=== PATIENT | male | born 1960 | race African-American/Black ===

== ENCOUNTER 2017-02-07 03:30 | Inpatient (IN) | payer SELFPAY ==
[2017-02-07] VITALS (12 sets, daily range): BP systolic 102–163; BP diastolic 60–94
[~2017-02-07] VITALS: Ht 175.3 cm; Wt 72.6 kg
[2017-02-07 04:24] LABS: BASOPHILS # (AUTO) 0.2 K/uL (0.0-8.0); BASOPHILS % (AUTO) 0.8 % (0.0-2.0); EOSINOPHILS # (AUTO) 0.2 K/uL (0.0-0.7); EOSINOPHILS % (AUTO) 0.9 % (0.0-7.0); HEMATOCRIT 48.5 % (40-50); HEMOGLOBIN 16.2 G/DL (14.0-18.0); LYMPHOCYTES # (AUTO) 0.7 K/UL (0.8-4.8); LYMPHOCYTES % (AUTO) 3.5 % (20.5-51.5); MEAN CORPUSCULAR HEMOGLOBIN 27.2 UUG (27.0-31.0); MEAN CORPUSCULAR HGB CONC 33 g/dL (32.0-37.0); MEAN CORPUSCULAR VOLUME 81.4 FL (82.0-92.0); MONOCYTES # (AUTO) 0.8 K/UL (0.1-1.30); MONOCYTES % (AUTO) 3.9 % (0.0-11.0); NEUTROPHILS # (AUTO) 17.9 K/UL (1.8-8.9); NEUTROPHILS % (AUTO) 90.9 % (38.5-71.5); PLATELET COUNT (AUTO) 496 K/UL (150-450); RED BLOOD CELL COUNT(AUTO) 5.95 MIL/UL (4.7-6.1); WHITE BLOOD COUNT (AUTO) 19.8 K/UL (4.0-11.2)
[2017-02-07 04:43] LABS: ALANINE AMINOTRANSFERASE 14 U/L (16-63); ALKALINE PHOSPHATASE 129 U/L (50-136); ASPARTATE AMINOTRANSFERASE 12 U/L (15-37); BILIRUBIN,DIRECT < 0.1 mg/dL (0.0-0.2); BILIRUBIN,TOTAL 0.3 mg/dL (0.2-1.0); CARBON DIOXIDE 37 mmol/L (21-32); CHLORIDE 97 mmol/L (98-107); CREATININE 3.4 mg/dL (0.6-1.3); LIPASE 104 U/L (73-393); POTASSIUM 3.2 mmol/L (3.5-5.1); TOTAL PROTEIN, SERUM 6.4 g/dL (6.4-8.2); UREA NITROGEN, BLOOD 44 mg/dL (7-18)
[2017-02-07 04:47] LABS: GLUCOSE 757 mg/dL (74-106)
[2017-02-07 05:47] LABS: BAND % (MANUAL) 2 % (0-10); LYMPHOCYTES % (MANUAL) 6 % (20-40); METAMYELOCYTES % 1 % (0-1); MONOCYTES % (MANUAL) 3 % (2-10); NEUTROPHILS % (MANUAL) 88 % (42-75)
[2017-02-07 13:45] LABS: CREATININE 3.4 mg/dL (0.6-1.3); POTASSIUM 3.3 mmol/L (3.5-5.1)
[2017-02-07 13:48] LABS: HEMOGLOBIN 13.8 G/DL (14.0-18.0); MEAN CORPUSCULAR HEMOGLOBIN 26.5 UUG (27.0-31.0); MEAN CORPUSCULAR HGB CONC 33 g/dL (32.0-37.0); MEAN CORPUSCULAR VOLUME 80.5 FL (82.0-92.0); PLATELET COUNT (AUTO) 465 K/UL (150-450); WHITE BLOOD COUNT (AUTO) 15.6 K/UL (4.0-11.2)
[2017-02-07 13:51] LABS: BILIRUBIN,TOTAL 0.4 mg/dL (0.2-1.0); TOTAL PROTEIN, SERUM 5.1 g/dL (6.4-8.2)
[2017-02-07 13:59] LABS: HEMATOCRIT 42.2 % (40-50); RED BLOOD CELL COUNT(AUTO) 5.24 MIL/UL (4.7-6.1)
[2017-02-07 14:24] LABS: LYMPHOCYTES % (MANUAL) 6 % (20-40); MONOCYTES % (MANUAL) 6 % (2-10); NEUTROPHILS % (MANUAL) 88 % (42-75)
[2017-02-07 20:46] LABS: *BILIRUBIN,URIN NEGATIVE (NEGATIVE); *BLOOD, URINE 2+ (NEGATIVE); *CLARITY,URINE SLIGHTLY CLOUDY (CLEAR); *COLOR,URINE YELLOW (YELLOW); *KETONES,URINE TRACE (NEGATIVE); *UROBILINOGEN,URINE 0.2 E.U./dl (NORMAL); LEUKOCYTE ESTERASE ,URINE NEGATIVE (NEGATIVE); NITRITE, URINE NEGATIVE (NEGATIVE); PH,URINE 6.5 (5.0-8.0)
[2017-02-07 20:48] LABS: *PROTEIN,URINE 3+ (NEGATIVE); UGLUCOSE 3+ (NEGATIVE)
[2017-02-07 20:56] LABS: BACTERIA,URINE FEW /HPF (NONE SEEN); SQUAMOUS EPITHELIAL CELL,UR FEW /HPF (NONE SEEN); YEAST,URINE RARE /HPF (NONE SEEN)
[2017-02-07 20:59] LABS: *CREATININE,URINE 74.2 mg/dL (30-125)
[2017-02-07 21:44] LABS: *URINE TOTAL PROTEIN RANDOM > 1000.0 mg/dL (<150/24HR)
[2017-02-08] VITALS (25 sets, daily range): BP systolic 94–192; BP diastolic 52–104
[2017-02-08 05:11] LABS: BASOPHILS # (AUTO) 0.3 K/uL (0.0-8.0); BASOPHILS % (AUTO) 1.1 % (0.0-2.0); EOSINOPHILS % (AUTO) 0.1 % (0.0-7.0); HEMATOCRIT 47.3 % (40-50); HEMOGLOBIN 15.5 G/DL (14.0-18.0); LYMPHOCYTES # (AUTO) 1.6 K/UL (0.8-4.8); LYMPHOCYTES % (AUTO) 5.2 % (20.5-51.5); MEAN CORPUSCULAR HEMOGLOBIN 26.8 UUG (27.0-31.0); MEAN CORPUSCULAR HGB CONC 33 g/dL (32.0-37.0); MONOCYTES # (AUTO) 1.4 K/UL (0.1-1.30); MONOCYTES % (AUTO) 4.4 % (0.0-11.0); NEUTROPHILS # (AUTO) 28.3 K/UL (1.8-8.9); NEUTROPHILS % (AUTO) 89.2 % (38.5-71.5); PLATELET COUNT (AUTO) 530 K/UL (150-450); RED BLOOD CELL COUNT(AUTO) 5.76 MIL/UL (4.7-6.1)
[2017-02-08 05:14] LABS: CREATININE 3.6 mg/dL (0.6-1.3); PHOSPHOROUS 3.6 mg/dL (2.5-4.9); POTASSIUM 3.1 mmol/L (3.5-5.1)
[2017-02-08 05:19] LABS: WHITE BLOOD COUNT (AUTO) 31.6 K/UL (4.0-11.2)
[2017-02-08 05:49] LABS: *OCCULT BLOOD STOOL POSITIVE (NEGATIVE)
[2017-02-08 06:01] LABS: BAND % (MANUAL) 5 % (0-10); LYMPHOCYTES % (MANUAL) 6 % (20-40); MONOCYTES % (MANUAL) 2 % (2-10); NEUTROPHILS % (MANUAL) 87 % (42-75)
[2017-02-08] MEDS ORDERED: POTA10CA43 PO (21:22)
[2017-02-08] MEDS ORDERED: ASPI-612 PO (21:22)
[2017-02-08] MEDS ORDERED: LEVE500T20 PO (21:22)
[2017-02-08] MEDS ORDERED: OMEP40CA37 PO (21:22)
[2017-02-09] VITALS (22 sets, daily range): BP systolic 94–186; BP diastolic 55–97
[2017-02-09 05:12] LABS: BASOPHILS # (AUTO) 0.3 K/uL (0.0-8.0); BASOPHILS % (AUTO) 1.7 % (0.0-2.0); EOSINOPHILS % (AUTO) 0.2 % (0.0-7.0); HEMATOCRIT 36.9 % (40-50); HEMOGLOBIN 12.2 G/DL (14.0-18.0); LYMPHOCYTES # (AUTO) 1.8 K/UL (0.8-4.8); LYMPHOCYTES % (AUTO) 10.9 % (20.5-51.5); MEAN CORPUSCULAR HGB CONC 33 g/dL (32.0-37.0); MEAN CORPUSCULAR VOLUME 81.5 FL (82.0-92.0); MONOCYTES # (AUTO) 1.2 K/UL (0.1-1.30); MONOCYTES % (AUTO) 7.1 % (0.0-11.0); NEUTROPHILS # (AUTO) 13.2 K/UL (1.8-8.9); NEUTROPHILS % (AUTO) 80.1 % (38.5-71.5); PLATELET COUNT (AUTO) 418 K/UL (150-450); RED BLOOD CELL COUNT(AUTO) 4.53 MIL/UL (4.7-6.1); WHITE BLOOD COUNT (AUTO) 16.5 K/UL (4.0-11.2)
[2017-02-09 05:14] LABS: CREATININE 3.4 mg/dL (0.6-1.3); MAGNESIUM 1.6 mg/dL (1.8-2.4); PHOSPHOROUS 2.3 mg/dL (2.5-4.9); POTASSIUM 3.5 mmol/L (3.5-5.1)
[2017-02-09 08:38] LABS: BAND % (MANUAL) 2 % (0-10); LYMPHOCYTES % (MANUAL) 11 % (20-40); MONOCYTES % (MANUAL) 8 % (2-10); NEUTROPHILS % (MANUAL) 79 % (42-75)
[2017-02-09 14:10] LABS: A/G RATIO 0.8 (0.7-1.7); ALPHA-1-GLOBULIN 0.2 g/dL (0.0-0.4); ALPHA-2-GLOBULIN 0.7 g/dL (0.4-1.0); GAMMA GLOBULIN 0.7 g/dL (0.4-1.8); GLOBULIN, TOTAL 2.6 g/dL (2.2-3.9); M-SPIKE Not Observed g/dL (Not Observed)
[2017-02-10] VITALS (23 sets, daily range): BP systolic 108–162; BP diastolic 53–92
[2017-02-10 05:08] LABS: BASOPHILS # (AUTO) 0.2 K/uL (0.0-8.0); BASOPHILS % (AUTO) 1.7 % (0.0-2.0); EOSINOPHILS # (AUTO) 0.2 K/uL (0.0-0.7); EOSINOPHILS % (AUTO) 2.2 % (0.0-7.0); HEMATOCRIT 35.2 % (40-50); HEMOGLOBIN 11.5 G/DL (14.0-18.0); LYMPHOCYTES # (AUTO) 1.8 K/UL (0.8-4.8); LYMPHOCYTES % (AUTO) 19.1 % (20.5-51.5); MEAN CORPUSCULAR HGB CONC 33 g/dL (32.0-37.0); MEAN CORPUSCULAR VOLUME 82.7 FL (82.0-92.0); MONOCYTES # (AUTO) 0.4 K/UL (0.1-1.30); MONOCYTES % (AUTO) 4.7 % (0.0-11.0); NEUTROPHILS # (AUTO) 6.8 K/UL (1.8-8.9); NEUTROPHILS % (AUTO) 72.3 % (38.5-71.5); PLATELET COUNT (AUTO) 370 K/UL (150-450); RED BLOOD CELL COUNT(AUTO) 4.25 MIL/UL (4.7-6.1); WHITE BLOOD COUNT (AUTO) 9.4 K/UL (4.0-11.2)
[2017-02-10 05:36] LABS: BILIRUBIN,TOTAL 0.3 mg/dL (0.2-1.0); POTASSIUM 3.6 mmol/L (3.5-5.1); TOTAL PROTEIN, SERUM 4.7 g/dL (6.4-8.2)
[2017-02-10 07:36] LABS: EOSINOPHILS % (MANUAL) 4 % (0-8); LYMPHOCYTES % (MANUAL) 14 % (20-40); MONOCYTES % (MANUAL) 3 % (2-10); NEUTROPHILS % (MANUAL) 79 % (42-75)
[2017-02-10 11:59] LABS: THYROID STIMULATING HORMONE 3.17 mIU/mL (0.358-3.740)
[2017-02-11] VITALS (12 sets, daily range): BP systolic 90–159; BP diastolic 57–95
[2017-02-11 04:48] LABS: BASOPHILS # (AUTO) 0.1 K/uL (0.0-8.0); BASOPHILS % (AUTO) 0.7 % (0.0-2.0); EOSINOPHILS # (AUTO) 0.4 K/uL (0.0-0.7); EOSINOPHILS % (AUTO) 2.3 % (0.0-7.0); HEMATOCRIT 33.2 % (40-50); LYMPHOCYTES # (AUTO) 1.9 K/UL (0.8-4.8); LYMPHOCYTES % (AUTO) 12.1 % (20.5-51.5); MEAN CORPUSCULAR HGB CONC 33 g/dL (32.0-37.0); MEAN CORPUSCULAR VOLUME 81.5 FL (82.0-92.0); MONOCYTES # (AUTO) 0.4 K/UL (0.1-1.30); MONOCYTES % (AUTO) 2.5 % (0.0-11.0); NEUTROPHILS # (AUTO) 12.7 K/UL (1.8-8.9); NEUTROPHILS % (AUTO) 82.4 % (38.5-71.5); PLATELET COUNT (AUTO) 325 K/UL (150-450); RED BLOOD CELL COUNT(AUTO) 4.07 MIL/UL (4.7-6.1); WHITE BLOOD COUNT (AUTO) 15.5 K/UL (4.0-11.2)
[2017-02-11 05:05] LABS: BILIRUBIN,TOTAL 0.4 mg/dL (0.2-1.0); CREATININE 2.8 mg/dL (0.6-1.3); MAGNESIUM 1.6 mg/dL (1.8-2.4); PHOSPHOROUS 2.5 mg/dL (2.5-4.9); POTASSIUM 3.7 mmol/L (3.5-5.1); TOTAL PROTEIN, SERUM 4.6 g/dL (6.4-8.2)
[2017-02-11 09:12] LABS: EOSINOPHILS % (MANUAL) 3 % (0-8); LYMPHOCYTES % (MANUAL) 14 % (20-40); MONOCYTES % (MANUAL) 1 % (2-10); NEUTROPHILS % (MANUAL) 82 % (42-75)
[2017-02-12] VITALS: BP 139/66
[2017-02-12 04:00] VITALS: BP 131/68
[2017-02-12 07:50] VITALS: BP 152/89
[2017-02-12 10:43] LABS: *BILIRUBIN,URIN NEGATIVE (NEGATIVE); *BLOOD, URINE 1+ (NEGATIVE); *CLARITY,URINE CLEAR (CLEAR); *COLOR,URINE YELLOW (YELLOW); *KETONES,URINE NEGATIVE (NEGATIVE); *UROBILINOGEN,URINE 0.2 E.U./dl (NORMAL); LEUKOCYTE ESTERASE ,URINE TRACE (NEGATIVE); NITRITE, URINE NEGATIVE (NEGATIVE); UGLUCOSE TRACE (NEGATIVE)
[2017-02-12 10:49] LABS: *PROTEIN,URINE 3+ (NEGATIVE)
[2017-02-12 10:52] LABS: BACTERIA,URINE FEW /HPF (NONE SEEN); SQUAMOUS EPITHELIAL CELL,UR FEW /HPF (NONE SEEN)
[2017-02-12 10:53] LABS: YEAST,URINE RARE /HPF (NONE SEEN)
[2017-02-12 11:05] LABS: *CREATININE,URINE 21.3 mg/dL (30-125); *URINE TOTAL PROTEIN RANDOM 179.3 mg/dL (<150/24HR)
[2017-02-12 12:00] VITALS: BP 120/76
[2017-02-12 16:06] VITALS: BP 138/76
[2017-02-12 20:13] VITALS: BP 137/85
[2017-02-13 05:14] VITALS: BP 137/83
[2017-02-13 06:31] LABS: BASOPHILS % (AUTO) 0.3 % (0.0-2.0); EOSINOPHILS # (AUTO) 0.6 K/uL (0.0-0.7); EOSINOPHILS % (AUTO) 5.7 % (0.0-7.0); HEMATOCRIT 34.3 % (40-50); HEMOGLOBIN 11.3 G/DL (14.0-18.0); LYMPHOCYTES # (AUTO) 1.8 K/UL (0.8-4.8); LYMPHOCYTES % (AUTO) 17.3 % (20.5-51.5); MEAN CORPUSCULAR HEMOGLOBIN 26.8 UUG (27.0-31.0); MEAN CORPUSCULAR HGB CONC 33 g/dL (32.0-37.0); MEAN CORPUSCULAR VOLUME 81.4 FL (82.0-92.0); MONOCYTES # (AUTO) 0.8 K/UL (0.1-1.30); MONOCYTES % (AUTO) 8.3 % (0.0-11.0); NEUTROPHILS % (AUTO) 68.4 % (38.5-71.5); PLATELET COUNT (AUTO) 281 K/UL (150-450); RED BLOOD CELL COUNT(AUTO) 4.22 MIL/UL (4.7-6.1); WHITE BLOOD COUNT (AUTO) 10.2 K/UL (4.0-11.2)
[2017-02-13 06:59] LABS: BILIRUBIN,TOTAL 0.2 mg/dL (0.2-1.0); CREATININE 2.5 mg/dL (0.6-1.3); MAGNESIUM 1.7 mg/dL (1.8-2.4); PHOSPHOROUS 2.9 mg/dL (2.5-4.9); POTASSIUM 4.1 mmol/L (3.5-5.1); TOTAL PROTEIN, SERUM 5.1 g/dL (6.4-8.2)
[2017-02-13 11:11] VITALS: BP 147/76
[2017-02-13 15:18] VITALS: BP 127/77
[2017-02-13 20:00] VITALS: BP 130/75
[2017-02-14 06:01] VITALS: BP 135/65
[2017-02-14 07:39] LABS: BASOPHILS % (AUTO) 0.2 % (0.0-2.0); EOSINOPHILS # (AUTO) 0.5 K/uL (0.0-0.7); EOSINOPHILS % (AUTO) 4.9 % (0.0-7.0); HEMATOCRIT 31.2 % (40-50); HEMOGLOBIN 10.5 G/DL (14.0-18.0); LYMPHOCYTES # (AUTO) 1.6 K/UL (0.8-4.8); LYMPHOCYTES % (AUTO) 16.4 % (20.5-51.5); MEAN CORPUSCULAR HGB CONC 34 g/dL (32.0-37.0); MEAN CORPUSCULAR VOLUME 80.4 FL (82.0-92.0); MONOCYTES # (AUTO) 0.9 K/UL (0.1-1.30); MONOCYTES % (AUTO) 8.8 % (0.0-11.0); NEUTROPHILS # (AUTO) 6.8 K/UL (1.8-8.9); NEUTROPHILS % (AUTO) 69.7 % (38.5-71.5); PLATELET COUNT (AUTO) 331 K/UL (150-450); RED BLOOD CELL COUNT(AUTO) 3.88 MIL/UL (4.7-6.1); WHITE BLOOD COUNT (AUTO) 9.8 K/UL (4.0-11.2)
[2017-02-14 08:00] VITALS: BP 153/82
[2017-02-14 08:19] LABS: CREATININE 2.3 mg/dL (0.6-1.3); MAGNESIUM 1.5 mg/dL (1.8-2.4); PHOSPHOROUS 2.8 mg/dL (2.5-4.9); POTASSIUM 4.1 mmol/L (3.5-5.1)
[2017-02-14 10:24] LABS: BAND % (MANUAL) 3 % (0-10); EOSINOPHILS % (MANUAL) 7 % (0-8); LYMPHOCYTES % (MANUAL) 20 % (20-40); MONOCYTES % (MANUAL) 5 % (2-10); MYELOCYTES % 1 % (0-0); NEUTROPHILS % (MANUAL) 64 % (42-75)
[2017-02-14 12:00] VITALS: BP 138/75
[2017-02-14 14:55] VITALS: BP 118/71
[2017-02-14 19:00] VITALS: BP 150/78
[2017-02-15 06:15] LABS: BASOPHILS # (AUTO) 0.2 K/uL (0.0-8.0); EOSINOPHILS # (AUTO) 0.4 K/uL (0.0-0.7); EOSINOPHILS % (AUTO) 3.4 % (0.0-7.0); HEMATOCRIT 34.1 % (40-50); HEMOGLOBIN 11.3 G/DL (14.0-18.0); LYMPHOCYTES # (AUTO) 1.9 K/UL (0.8-4.8); LYMPHOCYTES % (AUTO) 18.3 % (20.5-51.5); MEAN CORPUSCULAR HEMOGLOBIN 26.8 UUG (27.0-31.0); MEAN CORPUSCULAR HGB CONC 33 g/dL (32.0-37.0); MEAN CORPUSCULAR VOLUME 80.7 FL (82.0-92.0); MONOCYTES # (AUTO) 1.2 K/UL (0.1-1.30); MONOCYTES % (AUTO) 11.1 % (0.0-11.0); NEUTROPHILS # (AUTO) 6.8 K/UL (1.8-8.9); NEUTROPHILS % (AUTO) 65.2 % (38.5-71.5); PLATELET COUNT (AUTO) 279 K/UL (150-450); RED BLOOD CELL COUNT(AUTO) 4.22 MIL/UL (4.7-6.1); WHITE BLOOD COUNT (AUTO) 10.4 K/UL (4.0-11.2)
[2017-02-15 06:28] LABS: CREATININE 2.5 mg/dL (0.6-1.3); MAGNESIUM 2.1 mg/dL (1.8-2.4); PHOSPHOROUS 2.5 mg/dL (2.5-4.9); POTASSIUM 4.2 mmol/L (3.5-5.1)
[2017-02-15 09:08] LABS: A/G RATIO 0.5 (0.7-1.7); ALBUMIN 1.7 g/dL (2.9-4.4); ALPHA-1-GLOBULIN 0.3 g/dL (0.0-0.4); ALPHA-2-GLOBULIN 0.8 g/dL (0.4-1.0); BETA GLOBULIN 0.7 g/dL (0.7-1.3); GAMMA GLOBULIN 1.3 g/dL (0.4-1.8); GLOBULIN, TOTAL 3.1 g/dL (2.2-3.9); M-SPIKE 0.6 g/dL (Not Observed)
[2017-02-15 13:00] VITALS: BP 135/83
[2017-02-15 15:58] VITALS: BP 140/76
[2017-02-15 19:17] VITALS: BP 130/76
[2017-02-16 04:00] VITALS: BP 140/67
[2017-02-16 06:29] LABS: CREATININE 2.7 mg/dL (0.6-1.3); PHOSPHOROUS 3.2 mg/dL (2.5-4.9); POTASSIUM 3.6 mmol/L (3.5-5.1)
[2017-02-16 06:41] LABS: BASOPHILS % (AUTO) 0.4 % (0.0-2.0); EOSINOPHILS # (AUTO) 0.3 K/uL (0.0-0.7); EOSINOPHILS % (AUTO) 2.5 % (0.0-7.0); HEMATOCRIT 31.5 % (40-50); HEMOGLOBIN 10.3 G/DL (14.0-18.0); LYMPHOCYTES # (AUTO) 3.3 K/UL (0.8-4.8); LYMPHOCYTES % (AUTO) 28.5 % (20.5-51.5); MEAN CORPUSCULAR HEMOGLOBIN 26.5 UUG (27.0-31.0); MEAN CORPUSCULAR HGB CONC 33 g/dL (32.0-37.0); MEAN CORPUSCULAR VOLUME 81.4 FL (82.0-92.0); MONOCYTES # (AUTO) 1.4 K/UL (0.1-1.30); MONOCYTES % (AUTO) 12.1 % (0.0-11.0); NEUTROPHILS # (AUTO) 6.4 K/UL (1.8-8.9); NEUTROPHILS % (AUTO) 56.5 % (38.5-71.5); RED BLOOD CELL COUNT(AUTO) 3.88 MIL/UL (4.7-6.1); WHITE BLOOD COUNT (AUTO) 11.4 K/UL (4.0-11.2)
[2017-02-16 06:56] LABS: PLATELET COUNT (AUTO) 412 K/UL (150-450)
[2017-02-16 07:55] VITALS: BP 122/66
[2017-02-16 10:41] LABS: BAND % (MANUAL) 3 % (0-10); LYMPHOCYTES % (MANUAL) 26 % (20-40); MONOCYTES % (MANUAL) 10 % (2-10); NEUTROPHILS % (MANUAL) 61 % (42-75)
[2017-02-16 11:59] VITALS: BP 101/51
[2017-02-16] MEDS ORDERED: AMLO5TAB2 PO (14:11)
[2017-02-16] MEDS ORDERED: Blood Sugar Diagnostic VI (14:11)
[2017-02-16] MEDS ORDERED: INSU100I19 SQ (14:11)
[2017-02-16] MEDS ORDERED: ATOR40TA PO (14:11)
[2017-02-16 15:42] VITALS: BP 113/61
[2017-02-16 20:00] VITALS: BP 120/64
== END 2017-02-17 | disposition home or self-care (01) | DRG 377 ==
LOC: ER 03:32 → CCU 09:09 → TELE 02-11 18:34 → MED 02-12 11:06
PROVIDERS: ADMIT Nurse Practitioner Acute Care; ATTEND Internal Medicine
PROC: B548ZZA Ultrasonography of Superior Vena Cava, Guidance (ICD-10-PCS; principal; 2017-02-09)
PROC: 02HV33Z Insertion of Infusion Device into Superior Vena Cava, Percutaneous Approach (ICD-10-PCS; principal; 2017-02-09)
PROC: 0DB48ZX Excision of Esophagogastric Junction, Via Natural or Artificial Opening Endoscopic, Diagnostic (ICD-10-PCS; 2017-02-10)
PROC: 0DB28ZX Excision of Middle Esophagus, Via Natural or Artificial Opening Endoscopic, Diagnostic (ICD-10-PCS; 2017-02-10)
PROC: 0DB38ZX Excision of Lower Esophagus, Via Natural or Artificial Opening Endoscopic, Diagnostic (ICD-10-PCS; 2017-02-10)
PROC: 0DB68ZX Excision of Stomach, Via Natural or Artificial Opening Endoscopic, Diagnostic (ICD-10-PCS; 2017-02-10)
DX: K29.01 Acute gastritis with bleeding (principal); N17.0 Acute kidney failure with tubular necrosis; I21.4 Non-ST elevation (NSTEMI) myocardial infarction; R65.11 Systemic inflammatory response syndrome (SIRS) of non-infectious origin with acute organ dysfunction; I63.9 Cerebral infarction, unspecified; G93.40 Encephalopathy, unspecified; E11.00 Type 2 diabetes mellitus with hyperosmolarity without nonketotic hyperglycemic-hyperosmolar coma (NKHHC); K31.84 Gastroparesis; E11.40 Type 2 diabetes mellitus with diabetic neuropathy, unspecified; I50.31 Acute diastolic (congestive) heart failure; E43 Unspecified severe protein-calorie malnutrition; N18.4 Chronic kidney disease, stage 4 (severe); D68.59 Other primary thrombophilia; N04.9 Nephrotic syndrome with unspecified morphologic changes; E87.0 Hyperosmolality and hypernatremia; I31.3 Pericardial effusion (noninflammatory); I13.0 Hypertensive heart and chronic kidney disease with heart failure and stage 1 through stage 4 chronic kidney disease, or unspecified chronic kidney disease; E66.01 Morbid (severe) obesity due to excess calories; K29.51 Unspecified chronic gastritis with bleeding; E86.0 Dehydration; E88.09 Other disorders of plasma-protein metabolism, not elsewhere classified; D50.9 Iron deficiency anemia, unspecified; E78.5 Hyperlipidemia, unspecified; E87.6 Hypokalemia; G40.909 Epilepsy, unspecified, not intractable, without status epilepticus; K74.60 Unspecified cirrhosis of liver; I69.820 Aphasia following other cerebrovascular disease; I25.2 Old myocardial infarction; Z98.61 Coronary angioplasty status; D72.829 Elevated white blood cell count, unspecified; K44.9 Diaphragmatic hernia without obstruction or gangrene; F01.50 Vascular dementia, unspecified severity, without behavioral disturbance, psychotic disturbance, mood disturbance, and anxiety; N28.1 Cyst of kidney, acquired; N40.0 Benign prostatic hyperplasia without lower urinary tract symptoms; K80.20 Calculus of gallbladder without cholecystitis without obstruction; Z79.4 Long term (current) use of insulin; E11.65 Type 2 diabetes mellitus with hyperglycemia; E11.21 Type 2 diabetes mellitus with diabetic nephropathy; E11.43 Type 2 diabetes mellitus with diabetic autonomic (poly)neuropathy; H35.30 Unspecified macular degeneration; I25.10 Atherosclerotic heart disease of native coronary artery without angina pectoris; M81.0 Age-related osteoporosis without current pathological fracture; Z68.23 Body mass index [BMI] 23.0-23.9, adult; K21.0 Gastro-esophageal reflux disease with esophagitis
CPT/HCPCS: 36415; 36569; 70030-TC; 70450; 71010; 76705; 76770; 83605; 83690; 83735; 83970; 84100; 84155; 84156; 84165; 84300; 84443; 85025; 85730; 86850; 86900; 86901; 87086; 93005; 93307; 97110; 97116; 97530; A4217; A4663; C9113; J0360; J1815; J1885; J1953; J2060; J2354; J2405; J2543; J3475; J3480; J3490; J7030; J7060; Q9963

== ENCOUNTER 2017-05-02 16:36 | Inpatient (IN) | payer MEDICAID ==
[~2017-05-02] VITALS: Ht 170.2 cm; Wt 61.2 kg
[~2017-05-02 16:36] MED LIST: AMLO5TAB2 PO; ASPI-612 PO; ATOR40TA PO; Blood Sugar Diagnostic VI; INSU100I19 SQ; LEVE500T20 PO; OMEP40CA37 PO; POTA10CA43 PO
[2017-05-03 14:00] VITALS: BP 144/87
[2017-05-03] MEDS ORDERED: CEFT1FRO2 IV (14:48)
[2017-05-03] MEDS ORDERED: PANT40TA2 PO (14:48)
[2017-05-03] MEDS ORDERED: APIX2.5T PO (14:48)
[2017-05-03] MEDS ORDERED: HYDR-4075 IV (14:48)
[2017-05-03] MEDS ORDERED: ACET-2154 PO (14:48)
[2017-05-03] MEDS ORDERED: DEXTROSE 50% 50 ML DISP.SYRIN IV PRN (15:00)
[2017-05-03] MEDS ORDERED: Z GUARD REMEDY PASTE 57 GM TUBE TOP PRN (15:30)
[2017-05-03] MEDS: BLOOD SUGAR DIAGNOSTIC 1 EACH STRIP VI SCH ×2 (17:11→21:39)
[2017-05-03] MEDS: INSULIN REGULAR, HUMAN 300 UNIT/3 ML VIAL SQ PRN ×2 (17:14→22:36)
[2017-05-03 19:40] VITALS: BP 141/68
[2017-05-03] MEDS ORDERED: LEVETIRACETAM 500 MG TABLET PO SCH (21:30)
[2017-05-03] MEDS ORDERED: PANTOPRAZOLE SODIUM 40 MG TABLET.DR PO SCH (21:30)
[2017-05-04] MEDS ORDERED: ACETAMINOPHEN 325 MG TABLET PO SCH
[2017-05-04] MEDS ORDERED: ACETAMINOPHEN 325 MG TABLET ONE (00:25)
[2017-05-04] MEDS ORDERED: AMLODIPINE 10 MG TABLET ONE (00:26)
[2017-05-04] MEDS ORDERED: LEVETIRACETAM 500 MG TABLET ONE (00:28)
[2017-05-04] MEDS ORDERED: ASPIRIN 325 MG TABLET ONE (00:29)
[2017-05-04] MEDS ORDERED: ATORVASTATIN 40 MG TABLET ONE (00:29)
[2017-05-04] MEDS ORDERED: INSULIN DETEMIR 300 UNIT/3 ML CARTRIDGE SQ ONE (00:38)
[2017-05-04] MEDS: ATORVASTATIN 40 MG TABLET PO SCH ×2 (01:00→20:34)
[2017-05-04] MEDS: ASPIRIN 325 MG TABLET PO SCH ×2 (01:01→09:30)
[2017-05-04] MEDS: AMLODIPINE 5 MG TABLET PO SCH ×2 (01:05→09:31)
[2017-05-04] MEDS: INSULIN DETEMIR 300 UNIT/3 ML CARTRIDGE SQ SCH ×2 (01:15→20:37)
[2017-05-04 06:53] LABS: BASOPHILS # (AUTO) 0.1 K/uL (0.0-8.0); BASOPHILS % (AUTO) 0.9 % (0.0-2.0); EOSINOPHILS # (AUTO) 0.3 K/uL (0.0-0.7); EOSINOPHILS % (AUTO) 4.3 % (0.0-7.0); HEMATOCRIT 30.5 % (40-50); HEMOGLOBIN 10.5 G/DL (14.0-18.0); LYMPHOCYTES # (AUTO) 1.2 K/UL (0.8-4.8); LYMPHOCYTES % (AUTO) 17.5 % (20.5-51.5); MEAN CORPUSCULAR HGB CONC 34 g/dL (32.0-37.0); MEAN CORPUSCULAR VOLUME 81.6 FL (82.0-92.0); MONOCYTES # (AUTO) 0.9 K/UL (0.1-1.30); MONOCYTES % (AUTO) 13.2 % (0.0-11.0); NEUTROPHILS # (AUTO) 4.4 K/UL (1.8-8.9); NEUTROPHILS % (AUTO) 64.1 % (38.5-71.5); PLATELET COUNT (AUTO) 376 K/UL (150-450); RED BLOOD CELL COUNT(AUTO) 3.74 MIL/UL (4.7-6.1); WHITE BLOOD COUNT (AUTO) 6.9 K/UL (4.0-11.2)
[2017-05-04 07:18] LABS: MAGNESIUM 1.8 mg/dL (1.8-2.4); PHOSPHOROUS 3.6 mg/dL (2.5-4.9); POTASSIUM 3.5 mmol/L (3.5-5.1)
[2017-05-04 07:30] VITALS: BP 126/78
[2017-05-04] MEDS ORDERED: PANTOPRAZOLE SODIUM 40 MG TABLET.DR PO SCH (07:30)
[2017-05-04] MEDS ORDERED: POTASSIUM CHLORIDE 10 MEQ CAPSULE.SA PO SCH (09:00)
[2017-05-04] MEDS ORDERED: Medication Not On Formulary EA (Omeprazole 40 MG) PO SCH (09:00)
[2017-05-04] MEDS ORDERED: Medication Not On Formulary EA (Apixaban (Eliquis) 2.5 MG) PO SCH (09:00)
[2017-05-04] MEDS: BLOOD SUGAR DIAGNOSTIC 1 EACH STRIP VI SCH ×4 (09:30→20:34)
[2017-05-04] MEDS: LEVETIRACETAM 500 MG TABLET PO SCH ×2 (09:31→20:34)
[2017-05-04] MEDS: PANTOPRAZOLE SODIUM 40 MG TABLET.DR PO SCH (09:31)
[2017-05-04] MEDS ORDERED: DEXTROSE 50% 50 ML DISP.SYRIN IV PRN (10:00)
[2017-05-04] MEDS ORDERED: ACETAMINOPHEN 325 MG TABLET PO PRN (11:00)
[2017-05-04] MEDS: CEFTRIAXONE 1 G in IV DEXTROSE 5% 50 ML IV SCH (11:52)
[2017-05-04] MEDS: INSULIN REGULAR, HUMAN 300 UNIT/3 ML VIAL SQ PRN ×2 (12:12→17:12)
[2017-05-04] MEDS ORDERED: APIXABAN 5 MG TABLET PO ONE ×2 (18:00)
[2017-05-04] MEDS: INSULIN REGULAR, HUMAN 300 UNITS/3 ML VIAL SQ PRN (20:39)
[2017-05-04 20:59] VITALS: BP 143/80
[2017-05-05] MEDS: BLOOD SUGAR DIAGNOSTIC 1 EACH STRIP VI SCH ×4 (06:33→21:04)
[2017-05-05] MEDS: PANTOPRAZOLE SODIUM 40 MG TABLET.DR PO SCH (06:33)
[2017-05-05 08:24] VITALS: BP 134/64
[2017-05-05] MEDS: ASPIRIN 325 MG TABLET PO SCH (09:35)
[2017-05-05] MEDS: AMLODIPINE 5 MG TABLET PO SCH (09:35)
[2017-05-05] MEDS: LEVETIRACETAM 500 MG TABLET PO SCH ×2 (09:35→21:04)
[2017-05-05] MEDS ORDERED: APIXABAN 5 MG TABLET PO ONE ×2 (10:45→20:45)
[2017-05-05] MEDS: CEFTRIAXONE 1 G in IV DEXTROSE 5% 50 ML IV SCH (11:15)
[2017-05-05] MEDS: INSULIN REGULAR, HUMAN 300 UNIT/3 ML VIAL SQ PRN (17:00)
[2017-05-05] MEDS: ATORVASTATIN 40 MG TABLET PO SCH (21:04)
[2017-05-05] MEDS: INSULIN DETEMIR 300 UNIT/3 ML CARTRIDGE SQ SCH (21:09)
[2017-05-05 21:10] VITALS: BP 129/78
[2017-05-05] MEDS: INSULIN REGULAR, HUMAN 300 UNITS/3 ML VIAL SQ PRN (21:10)
[2017-05-06] MEDS: PANTOPRAZOLE SODIUM 40 MG TABLET.DR PO SCH (06:31)
[2017-05-06] MEDS: BLOOD SUGAR DIAGNOSTIC 1 EACH STRIP VI SCH ×5 (06:32→21:58)
[2017-05-06 08:27] VITALS: BP 149/77
[2017-05-06] MEDS: ASPIRIN 325 MG TABLET PO SCH (08:58)
[2017-05-06] MEDS: LEVETIRACETAM 500 MG TABLET PO SCH ×2 (08:59→21:49)
[2017-05-06] MEDS: AMLODIPINE 5 MG TABLET PO SCH (09:00)
[2017-05-06] MEDS: LEVOFLOXACIN 250 MG TABLET PO SCH (11:16)
[2017-05-06] MEDS: INSULIN REGULAR, HUMAN 300 UNIT/3 ML VIAL SQ PRN ×2 (12:09→17:22)
[2017-05-06] MEDS ORDERED: APIXABAN 5 MG TABLET PO ONE (13:30)
[2017-05-06 20:25] VITALS: BP 140/82
[2017-05-06] MEDS: ATORVASTATIN 40 MG TABLET PO SCH (21:49)
[2017-05-06] MEDS: INSULIN DETEMIR 300 UNIT/3 ML CARTRIDGE SQ SCH (21:58)
[2017-05-06] MEDS: APIXABAN 5 MG TABLET PO SCH (21:58)
[2017-05-07] MEDS: PANTOPRAZOLE SODIUM 40 MG TABLET.DR PO SCH (06:24)
[2017-05-07] MEDS: BLOOD SUGAR DIAGNOSTIC 1 EACH STRIP VI SCH ×4 (06:40→20:54)
[2017-05-07 08:14] VITALS: BP 121/65
[2017-05-07] MEDS: APIXABAN 5 MG TABLET PO SCH ×2 (09:25→20:54)
[2017-05-07] MEDS: ASPIRIN 325 MG TABLET PO SCH (09:25)
[2017-05-07] MEDS: LEVETIRACETAM 500 MG TABLET PO SCH ×2 (09:25→20:54)
[2017-05-07] MEDS: AMLODIPINE 5 MG TABLET PO SCH (09:26)
[2017-05-07] MEDS: LEVOFLOXACIN 250 MG TABLET PO SCH (11:21)
[2017-05-07] MEDS: INSULIN REGULAR, HUMAN 300 UNIT/3 ML VIAL SQ PRN ×2 (12:19→17:16)
[2017-05-07] MEDS ORDERED: INFLUENZA VACCINE 2017-2018 0.5 ML DISP.SYRIN IM ONE (17:00)
[2017-05-07 20:46] VITALS: BP 136/77
[2017-05-07] MEDS: ATORVASTATIN 40 MG TABLET PO SCH (20:54)
[2017-05-07] MEDS: INSULIN REGULAR, HUMAN 300 UNITS/3 ML VIAL SQ PRN (20:56)
[2017-05-07] MEDS: INSULIN DETEMIR 300 UNIT/3 ML CARTRIDGE SQ SCH (20:58)
[2017-05-08] MEDS: PANTOPRAZOLE SODIUM 40 MG TABLET.DR PO SCH (06:22)
[2017-05-08] MEDS: BLOOD SUGAR DIAGNOSTIC 1 EACH STRIP VI SCH ×4 (06:41→20:50)
[2017-05-08 08:26] VITALS: BP 154/83
[2017-05-08] MEDS: ASPIRIN 325 MG TABLET PO SCH (08:52)
[2017-05-08] MEDS: LEVETIRACETAM 500 MG TABLET PO SCH ×2 (08:53→20:50)
[2017-05-08] MEDS: APIXABAN 5 MG TABLET PO SCH ×2 (08:53→20:49)
[2017-05-08] MEDS: AMLODIPINE 5 MG TABLET PO SCH (08:54)
[2017-05-08] MEDS: LEVOFLOXACIN 250 MG TABLET PO SCH (11:32)
[2017-05-08] MEDS: INSULIN REGULAR, HUMAN 300 UNIT/3 ML VIAL SQ PRN ×2 (12:16→17:11)
[2017-05-08 19:40] VITALS: BP 134/75
[2017-05-08] MEDS: ATORVASTATIN 40 MG TABLET PO SCH (20:50)
[2017-05-08] MEDS: INSULIN REGULAR, HUMAN 300 UNITS/3 ML VIAL SQ PRN (20:52)
[2017-05-08] MEDS: INSULIN DETEMIR 300 UNIT/3 ML CARTRIDGE SQ SCH (20:57)
[2017-05-09] MEDS: PANTOPRAZOLE SODIUM 40 MG TABLET.DR PO SCH (07:01)
[2017-05-09 08:11] VITALS: BP 148/72
[2017-05-09] MEDS: ASPIRIN 325 MG TABLET PO SCH (09:29)
[2017-05-09] MEDS: APIXABAN 5 MG TABLET PO SCH ×2 (09:30→21:17)
[2017-05-09] MEDS: LEVETIRACETAM 500 MG TABLET PO SCH ×2 (09:30→21:17)
[2017-05-09] MEDS: AMLODIPINE 5 MG TABLET PO SCH (09:33)
[2017-05-09] MEDS: LEVOFLOXACIN 250 MG TABLET PO SCH (11:38)
[2017-05-09] MEDS: BLOOD SUGAR DIAGNOSTIC 1 EACH STRIP VI SCH ×3 (11:43→21:17)
[2017-05-09] MEDS: INSULIN REGULAR, HUMAN 300 UNIT/3 ML VIAL SQ PRN (11:47)
[2017-05-09 19:45] VITALS: BP 145/79
[2017-05-09] MEDS: ATORVASTATIN 40 MG TABLET PO SCH (21:16)
[2017-05-09] MEDS: INSULIN REGULAR, HUMAN 300 UNITS/3 ML VIAL SQ PRN (21:22)
[2017-05-09] MEDS: INSULIN DETEMIR 300 UNIT/3 ML CARTRIDGE SQ SCH (22:26)
[2017-05-10] MEDS: PANTOPRAZOLE SODIUM 40 MG TABLET.DR PO SCH (06:55)
[2017-05-10] MEDS: BLOOD SUGAR DIAGNOSTIC 1 EACH STRIP VI SCH ×4 (07:45→20:41)
[2017-05-10 07:52] VITALS: BP 140/80
[2017-05-10] MEDS: ASPIRIN EC 81 MG TABLET.DR PO SCH (10:07)
[2017-05-10] MEDS: LEVETIRACETAM 500 MG TABLET PO SCH ×2 (10:08→20:29)
[2017-05-10] MEDS: APIXABAN 5 MG TABLET PO SCH ×2 (10:12→20:29)
[2017-05-10] MEDS: AMLODIPINE 5 MG TABLET PO SCH (10:14)
[2017-05-10] MEDS: LEVOFLOXACIN 250 MG TABLET PO SCH (11:53)
[2017-05-10] MEDS: INSULIN REGULAR, HUMAN 300 UNIT/3 ML VIAL SQ PRN ×2 (13:23→17:10)
[2017-05-10 20:00] VITALS: BP 140/77
[2017-05-10] MEDS: INSULIN REGULAR, HUMAN 300 UNITS/3 ML VIAL SQ PRN (20:37)
[2017-05-10] MEDS: INSULIN DETEMIR 300 UNIT/3 ML CARTRIDGE SQ SCH (20:38)
[2017-05-10] MEDS: ATORVASTATIN 40 MG TABLET PO SCH (20:42)
[2017-05-11] MEDS: BLOOD SUGAR DIAGNOSTIC 1 EACH STRIP VI SCH ×4 (06:39→20:27)
[2017-05-11] MEDS: PANTOPRAZOLE SODIUM 40 MG TABLET.DR PO SCH (06:39)
[2017-05-11 07:46] VITALS: BP 138/76
[2017-05-11 08:08] LABS: BILIRUBIN,TOTAL 0.1 mg/dL (0.2-1.0); CREATININE 2.9 mg/dL (0.6-1.3); MAGNESIUM 1.5 mg/dL (1.8-2.4); PHOSPHOROUS 3.4 mg/dL (2.5-4.9); POTASSIUM 3.8 mmol/L (3.5-5.1); TOTAL PROTEIN, SERUM 5.5 g/dL (6.4-8.2)
[2017-05-11] MEDS: ASPIRIN EC 81 MG TABLET.DR PO SCH (08:13)
[2017-05-11] MEDS: AMLODIPINE 5 MG TABLET PO SCH (08:13)
[2017-05-11] MEDS: APIXABAN 5 MG TABLET PO SCH ×2 (08:13→20:29)
[2017-05-11] MEDS: LEVETIRACETAM 500 MG TABLET PO SCH ×2 (08:13→20:29)
[2017-05-11 08:15] LABS: BASOPHILS % (AUTO) 0.6 % (0.0-2.0); EOSINOPHILS % (AUTO) 2.9 % (0.0-7.0); HEMOGLOBIN 9.2 g/dL (12.5-16.3); MONOCYTES # (AUTO) 0.6 K/uL (2.0-10.0)
[2017-05-11] MEDS: INSULIN REGULAR, HUMAN 300 UNIT/3 ML VIAL SQ PRN ×2 (08:19→17:01)
[2017-05-11 08:29] LABS: BASOPHILS # (AUTO) 0.1 K/uL (0.0-8.0); EOSINOPHILS # (AUTO) 0.2 K/uL (0.0-0.7); HEMATOCRIT 26.5 % (36.7-47.1); LYMPHOCYTES # (AUTO) 1.8 K/uL (20.0-40.0); LYMPHOCYTES % (AUTO) 20.9 % (20.5-51.5); MEAN CORPUSCULAR HEMOGLOBIN 27.7 uug (23.8-33.4); MEAN CORPUSCULAR HGB CONC 35 g/dL (32.5-36.3); MEAN CORPUSCULAR VOLUME 79.5 fL (73.0-96.2); MONOCYTES % (AUTO) 7.2 % (0.0-11.0); NEUTROPHILS # (AUTO) 5.9 K/uL (1.8-8.9); NEUTROPHILS % (AUTO) 68.4 % (38.5-71.5); RED BLOOD CELL COUNT(AUTO) 3.33 MIL/uL (4.06-5.63); WHITE BLOOD COUNT (AUTO) 8.6 K/uL (3.6-10.2)
[2017-05-11 08:30] LABS: PLATELET COUNT (AUTO) 434 K/uL (152-348)
[2017-05-11] MEDS: LEVOFLOXACIN 250 MG TABLET PO SCH (11:27)
[2017-05-11] MEDS ORDERED: MAGNESIUM OXIDE 400 MG TABLET PO ONE (15:00)
[2017-05-11 20:13] VITALS: BP 143/80
[2017-05-11] MEDS: INSULIN DETEMIR 300 UNIT/3 ML CARTRIDGE SQ SCH (20:28)
[2017-05-11] MEDS: ATORVASTATIN 40 MG TABLET PO SCH (20:29)
[2017-05-11] MEDS: INSULIN REGULAR, HUMAN 300 UNITS/3 ML VIAL SQ PRN (20:31)
[2017-05-12] MEDS: PANTOPRAZOLE SODIUM 40 MG TABLET.DR PO SCH (06:47)
[2017-05-12] MEDS: BLOOD SUGAR DIAGNOSTIC 1 EACH STRIP VI SCH ×4 (06:47→20:08)
[2017-05-12 07:30] VITALS: BP 126/71
[2017-05-12] MEDS: INSULIN REGULAR, HUMAN 300 UNIT/3 ML VIAL SQ PRN ×3 (08:42→17:26)
[2017-05-12] MEDS: LEVETIRACETAM 500 MG TABLET PO SCH ×2 (08:44→20:07)
[2017-05-12] MEDS: ASPIRIN EC 81 MG TABLET.DR PO SCH (08:44)
[2017-05-12] MEDS: AMLODIPINE 5 MG TABLET PO SCH (08:45)
[2017-05-12] MEDS: APIXABAN 5 MG TABLET PO SCH ×2 (08:49→20:06)
[2017-05-12] MEDS: LEVOFLOXACIN 250 MG TABLET PO SCH (11:42)
[2017-05-12 16:02] VITALS: BP 136/80
[2017-05-12 19:50] VITALS: BP 138/81
[2017-05-12] MEDS: ATORVASTATIN 40 MG TABLET PO SCH (20:07)
[2017-05-12] MEDS: INSULIN DETEMIR 300 UNIT/3 ML CARTRIDGE SQ SCH (20:12)
[2017-05-12] MEDS: INSULIN REGULAR, HUMAN 300 UNITS/3 ML VIAL SQ PRN (20:13)
[2017-05-13] MEDS: PANTOPRAZOLE SODIUM 40 MG TABLET.DR PO SCH (06:27)
[2017-05-13] MEDS: BLOOD SUGAR DIAGNOSTIC 1 EACH STRIP VI SCH ×4 (06:30→20:45)
[2017-05-13] MEDS: ASPIRIN EC 81 MG TABLET.DR PO SCH (08:14)
[2017-05-13] MEDS: AMLODIPINE 5 MG TABLET PO SCH (08:14)
[2017-05-13] MEDS: LEVETIRACETAM 500 MG TABLET PO SCH ×2 (08:14→20:35)
[2017-05-13] MEDS: APIXABAN 5 MG TABLET PO SCH ×2 (08:17→20:35)
[2017-05-13 10:05] VITALS: BP 127/62
[2017-05-13] MEDS ORDERED: INFLUENZA VACCINE 2017-2018 0.5 ML DISP.SYRIN IM ONE (12:00)
[2017-05-13] MEDS: INSULIN REGULAR, HUMAN 300 UNIT/3 ML VIAL SQ PRN (12:15)
[2017-05-13] MEDS: INSULIN REGULAR, HUMAN 300 UNITS/3 ML VIAL SQ PRN ×2 (16:46→20:40)
[2017-05-13 19:45] VITALS: BP 138/77
[2017-05-13] MEDS: ATORVASTATIN 40 MG TABLET PO SCH (20:33)
[2017-05-13] MEDS: INSULIN DETEMIR 300 UNIT/3 ML CARTRIDGE SQ SCH (20:43)
[2017-05-14] MEDS: PANTOPRAZOLE SODIUM 40 MG TABLET.DR PO SCH (06:33)
[2017-05-14] MEDS: BLOOD SUGAR DIAGNOSTIC 1 EACH STRIP VI SCH ×4 (06:36→20:25)
[2017-05-14] MEDS: AMLODIPINE 5 MG TABLET PO SCH (08:24)
[2017-05-14] MEDS: ASPIRIN EC 81 MG TABLET.DR PO SCH (08:24)
[2017-05-14] MEDS: LEVETIRACETAM 500 MG TABLET PO SCH ×2 (08:24→20:23)
[2017-05-14 08:49] VITALS: BP 115/67
[2017-05-14] MEDS: APIXABAN 5 MG TABLET PO SCH ×2 (09:27→20:24)
[2017-05-14] MEDS: INSULIN REGULAR, HUMAN 300 UNIT/3 ML VIAL SQ PRN ×2 (11:50→17:10)
[2017-05-14] MEDS: ATORVASTATIN 40 MG TABLET PO SCH (20:23)
[2017-05-14] MEDS: INSULIN DETEMIR 300 UNIT/3 ML CARTRIDGE SQ SCH (20:29)
[2017-05-14] MEDS: INSULIN REGULAR, HUMAN 300 UNITS/3 ML VIAL SQ PRN (20:30)
[2017-05-15] MEDS: PANTOPRAZOLE SODIUM 40 MG TABLET.DR PO SCH (06:38)
[2017-05-15] MEDS: BLOOD SUGAR DIAGNOSTIC 1 EACH STRIP VI SCH ×4 (06:38→20:15)
[2017-05-15 08:46] VITALS: BP 128/71
[2017-05-15] MEDS: LEVETIRACETAM 500 MG TABLET PO SCH ×2 (09:09→20:10)
[2017-05-15] MEDS: ASPIRIN EC 81 MG TABLET.DR PO SCH (09:09)
[2017-05-15] MEDS: APIXABAN 5 MG TABLET PO SCH ×2 (09:10→20:10)
[2017-05-15] MEDS: AMLODIPINE 5 MG TABLET PO SCH (09:10)
[2017-05-15] MEDS: INSULIN REGULAR, HUMAN 300 UNIT/3 ML VIAL SQ PRN ×2 (12:10→17:28)
[2017-05-15 19:40] VITALS: BP 128/70
[2017-05-15] MEDS: ATORVASTATIN 40 MG TABLET PO SCH (20:10)
[2017-05-15] MEDS: INSULIN DETEMIR 300 UNIT/3 ML CARTRIDGE SQ SCH (20:18)
[2017-05-15] MEDS: INSULIN REGULAR, HUMAN 300 UNITS/3 ML VIAL SQ PRN (20:19)
[2017-05-16] MEDS: PANTOPRAZOLE SODIUM 40 MG TABLET.DR PO SCH (06:03)
[2017-05-16] MEDS: BLOOD SUGAR DIAGNOSTIC 1 EACH STRIP VI SCH ×3 (06:31→16:48)
[2017-05-16 08:15] VITALS: BP 130/66
[2017-05-16] MEDS: ASPIRIN EC 81 MG TABLET.DR PO SCH (08:57)
[2017-05-16] MEDS: APIXABAN 5 MG TABLET PO SCH ×2 (08:57→16:43)
[2017-05-16 08:58] VITALS: BP 130/66
[2017-05-16] MEDS: LEVETIRACETAM 500 MG TABLET PO SCH (08:58)
[2017-05-16] MEDS: AMLODIPINE 5 MG TABLET PO SCH (08:58)
[2017-05-16] MEDS: INSULIN REGULAR, HUMAN 300 UNIT/3 ML VIAL SQ PRN (12:07)
== END 2017-05-16 17:25 | disposition home health service (06) | DRG 58 ==
PROVIDERS: ADMIT Physical Medicine & Rehabilitation Pain Medicine; ATTEND Physical Medicine & Rehabilitation Pain Medicine
DX: I69.398 Other sequelae of cerebral infarction (principal); N17.0 Acute kidney failure with tubular necrosis; E43 Unspecified severe protein-calorie malnutrition; D68.59 Other primary thrombophilia; E11.22 Type 2 diabetes mellitus with diabetic chronic kidney disease; I13.0 Hypertensive heart and chronic kidney disease with heart failure and stage 1 through stage 4 chronic kidney disease, or unspecified chronic kidney disease; E11.42 Type 2 diabetes mellitus with diabetic polyneuropathy; I50.32 Chronic diastolic (congestive) heart failure; E11.43 Type 2 diabetes mellitus with diabetic autonomic (poly)neuropathy; K31.84 Gastroparesis; K74.60 Unspecified cirrhosis of liver; I25.10 Atherosclerotic heart disease of native coronary artery without angina pectoris; K21.9 Gastro-esophageal reflux disease without esophagitis; N18.9 Chronic kidney disease, unspecified; I25.2 Old myocardial infarction; G40.909 Epilepsy, unspecified, not intractable, without status epilepticus; R26.9 Unspecified abnormalities of gait and mobility; R13.10 Dysphagia, unspecified; D50.0 Iron deficiency anemia secondary to blood loss (chronic); R19.5 Other fecal abnormalities; E11.65 Type 2 diabetes mellitus with hyperglycemia; E78.5 Hyperlipidemia, unspecified; F01.50 Vascular dementia, unspecified severity, without behavioral disturbance, psychotic disturbance, mood disturbance, and anxiety; G81.94 Hemiplegia, unspecified affecting left nondominant side; I25.5 Ischemic cardiomyopathy; K21.0 Gastro-esophageal reflux disease with esophagitis; K44.9 Diaphragmatic hernia without obstruction or gangrene; N28.1 Cyst of kidney, acquired; N39.0 Urinary tract infection, site not specified; M89.9 Disorder of bone, unspecified; N40.0 Benign prostatic hyperplasia without lower urinary tract symptoms; Z86.718 Personal history of other venous thrombosis and embolism; Z95.5 Presence of coronary angioplasty implant and graft; K80.20 Calculus of gallbladder without cholecystitis without obstruction
CPT/HCPCS: 36415; 70030-TC; 83735; 84100; 85025; 90686; 92507; 92523; 92526; 92610; 97110; 97112; 97116; 97530; 97535; A4663; J0696; J1815; J7050; J7060

== ENCOUNTER 2019-11-24 07:06 | Inpatient (IN) | payer MEDICARE, OTHER ==
[~2019-11-24] VITALS: Ht 180.3 cm; Wt 54.4 kg
[~2019-11-24 07:06] MED LIST changes: +ACET-2154 PO; -AMLO5TAB2 PO; +AMLO5TAB9 PO; +APIX2.5T PO; +CEFT1FRO2 IV; +HYDR-4075 IV; +OMEP40CA13 PO; -OMEP40CA37 PO; +PANT40TA2 PO
[2019-11-24] MEDS ORDERED: ONDANSETRON 4 MG/2 ML VIAL IV ONE (07:30)
[2019-11-24] MEDS ORDERED: IV NORMAL SALINE 500 ML BAG IV ONE (07:30)
[2019-11-24] MEDS ORDERED: ONDANSETRON 4 MG/2 ML VIAL ONE (07:42)
--- NOTE | 2019-11-24 07:51 | NUR ---
Patient BIB [id number] from home for N/V/D per EMS. A/Ox1; name. No acute neuro deficits, patient baseline patient is able to verbalize but not in complete sentences and EMS stated that the daughter states this is also his baseline. Respiratory even and unlabored, no cough no sob. No acute cardiovascular distress, all pulses palpable. Patient in bed at lowest position, sr upx2, safety precautions implemented per protocol.
[2019-11-24] MEDS ORDERED: LORA-259 PO (08:39)
[2019-11-24] MEDS ORDERED: LAMO25TA10 PO (08:39)
[2019-11-24] MEDS ORDERED: HYDR-4077 PO (08:39)
[2019-11-24] MEDS ORDERED: INSU100V10 SQ (08:39)
--- NOTE | 2019-11-24 08:40 | NUR ---
PT DAUGHTER, STEPHENIE GLORIA, , CALLED AND GAVE THE MED LIST.
[2019-11-24 08:43] LABS: BASOPHILS # (AUTO) 0.1 K/uL (0.0-8.0); BASOPHILS % (AUTO) 1.1 % (0.0-2.0); EOSINOPHILS # (AUTO) 0.2 K/uL (0.0-0.7); HEMATOCRIT 36.8 % (36.7-47.1); HEMOGLOBIN 12.3 g/dL (12.5-16.3); LYMPHOCYTES # (AUTO) 1.9 K/uL (20.0-40.0); LYMPHOCYTES % (AUTO) 23.6 % (20.5-51.5); MEAN CORPUSCULAR HEMOGLOBIN 29.7 uug (23.8-33.4); MEAN CORPUSCULAR HGB CONC 34 g/dL (32.5-36.3); MEAN CORPUSCULAR VOLUME 88.5 fL (73.0-96.2); MONOCYTES # (AUTO) 0.8 K/uL (2.0-10.0); MONOCYTES % (AUTO) 10.2 % (0.0-11.0); NEUTROPHILS % (AUTO) 63.1 % (38.5-71.5); PLATELET COUNT (AUTO) 329 K/uL (152-348); RED BLOOD CELL COUNT(AUTO) 4.16 MIL/uL (4.06-5.63); WHITE BLOOD COUNT (AUTO) 7.9 K/uL (3.6-10.2)
[2019-11-24] MEDS ORDERED: CLONIDINE HCL 0.2 MG TABLET ONE (08:44)
[2019-11-24] MEDS ORDERED: CLONIDINE HCL 0.2 MG TABLET PO ONE (08:45)
[2019-11-24 08:55] LABS: BILIRUBIN,DIRECT 0.1 mg/dL (0.0-0.2); BILIRUBIN,TOTAL 0.5 mg/dL (0.2-1.0); TOTAL PROTEIN, SERUM 7.8 g/dL (6.4-8.2)
[2019-11-24 08:56] LABS: CREATININE 11.6 mg/dL (0.6-1.3)
--- NOTE | 2019-11-24 09:25 | NUR ---
EPIC provider paged, awaiting call back from Joshua Marsh DNP.
--- NOTE | 2019-11-24 09:36 | NUR ---
Patient will go to [facility] Nephrology for admission. Awaiting call back from Dr. Goff.
--- NOTE | 2019-11-24 09:40 | NUR ---
Patient transported to CT in stable condition.
--- NOTE | 2019-11-24 09:50 | NUR ---
Patient back in room in stable condition. ERMD notified of the unresolved blood pressure elevation. Labetolol 20mg IV will be ordered.
[2019-11-24] MEDS ORDERED: LABETALOL HCL 100 MG/20 ML VIAL ONE (09:59)
--- NOTE | 2019-11-24 10:00 | NUR ---
Tele unable to take report at this time.
--- NOTE | 2019-11-24 10:33 | NUR ---
Report given to MIGDALIA Henderson.
[2019-11-24] MEDS ORDERED: LABETALOL HCL 100 MG/20 ML VIAL IV ONE (10:45)
--- NOTE | 2019-11-24 11:00 | NUR ---
RECEIVED PATIENT FROM ER. PATIENT A/OX1 PATIENT CONFUSED, BEDREST PATIENT HAS LEFT SIDED WEAKNESS NONACUTE. nO S/S OF RESPIRATORY DISTRESS. PATIENT DENIES PAIN AND DISCOMFORT.
[2019-11-24 11:40] VITALS: BP 145/73
[2019-11-24] MEDS ORDERED: MAGNESIUM HYDROXIDE 30 ML LIQUID UDC PO PRN (14:00)
[2019-11-24] MEDS ORDERED: DEXTROSE 50% 50 ML DISP.SYRIN IV PRN (14:00)
[2019-11-24] MEDS ORDERED: Z GUARD REMEDY PASTE 57 GM TUBE TOP PRN (14:00)
[2019-11-24] MEDS ORDERED: ACETAMINOPHEN 325 MG TABLET PO PRN (14:00)
[2019-11-24] MEDS ORDERED: ZOLPIDEM 5 MG TABLET PO PRN (14:00)
[2019-11-24 15:43] VITALS: BP 130/72
[2019-11-24] MEDS: BLOOD SUGAR DIAGNOSTIC 1 EACH STRIP VI SCH ×2 (16:38→21:15)
--- NOTE | 2019-11-24 19:00 | NUR ---
PATIENT ALERT BUT FORGETFUL, NO SOB NO CHEST PAIN, TELE MONITOR SINUS RHYTHM SINUS FERNANDO. DIALYSIS STAFF CAME TO DO DIALYSIS FOR THE PATIENT, CONT TO MONITOR.
[2019-11-24 20:22] VITALS: BP 99/48
[2019-11-24] MEDS: ONDANSETRON 4 MG/2 ML VIAL IV PRN (21:04)
--- NOTE | 2019-11-24 21:30 | NUR ---
PATIENT HAS EPISODE OF VOMITING APPROX 400CC VOMITUS, GIVEN ZOFRAN IV WITH EFFECTIVE RESULTS, CONT TO MONITOR.
[2019-11-24] MEDS: hydrALAZINE HCL 50 MG TABLET PO SCH (22:00)
--- NOTE | 2019-11-24 22:30 | NUR ---
HEMODIALYSIS WAS DONE, TOOK OUT 500CC FLUIDS TOLERATE WELL, R CHEST DIALYSIS PORT DRESSING WAS CHANGED BY FORGE UTILITY WORKER, NO BLEEDING NOTED, PATIENT ALERT NO COMPLAIN OF PAIN NOR DISCOMFORT CONT TO MONITOR.
[2019-11-24] MEDS: LAMOTRIGINE 25 MG TABLET PO SCH (22:43)
[2019-11-24] MEDS: INSULIN REGULAR, HUMAN 300 UNIT/3 ML VIAL SQ PRN (22:51)
[2019-11-25 01:05] VITALS: BP 166/78
[2019-11-25 01:10] VITALS: BP 172/76
[2019-11-25] MEDS: ONDANSETRON 4 MG/2 ML VIAL IV PRN ×2 (05:05→16:38)
[2019-11-25 05:29] VITALS: BP 148/73
[2019-11-25 06:07] LABS: HEPATITIS B SURFACE AB Reactive (.); HEPATITIS B SURFACE AG Negative (Negative)
[2019-11-25] MEDS: hydrALAZINE HCL 50 MG TABLET PO SCH ×3 (06:18→21:10)
[2019-11-25] MEDS: BLOOD SUGAR DIAGNOSTIC 1 EACH STRIP VI SCH ×4 (06:19→21:14)
--- NOTE | 2019-11-25 07:50 | NUR ---
AWAKE ALERT TO SELF ALL NEEDS ANTICIPATED AND SATISFIED TURNED AND REPOSITIONED Q2H FOR COMFORT NO EPISODES OF VOMITING AT THISA TIME TELE IS SR MADE COMFORTABLE WILL CONTINUE TO OBSERVE
[2019-11-25] MEDS: LAMOTRIGINE 25 MG TABLET PO SCH ×3 (09:16→21:09)
--- NOTE | 2019-11-25 09:27 | NUR ---
DENNIS GLORIA DNP HERE TO SEE PATIENT WITH NEW ORDERS AND NOTED.
[2019-11-25 09:30] LABS: BASOPHILS # (AUTO) 0.1 K/uL (0.0-8.0); BASOPHILS % (AUTO) 0.9 % (0.0-2.0); EOSINOPHILS # (AUTO) 0.1 K/uL (0.0-0.7); EOSINOPHILS % (AUTO) 1.1 % (0.0-7.0); HEMATOCRIT 35.3 % (36.7-47.1); HEMOGLOBIN 11.8 g/dL (12.5-16.3); LYMPHOCYTES # (AUTO) 1.6 K/uL (20.0-40.0); LYMPHOCYTES % (AUTO) 20.6 % (20.5-51.5); MEAN CORPUSCULAR HEMOGLOBIN 29.6 uug (23.8-33.4); MEAN CORPUSCULAR HGB CONC 34 g/dL (32.5-36.3); MEAN CORPUSCULAR VOLUME 88.4 fL (73.0-96.2); MONOCYTES # (AUTO) 0.7 K/uL (2.0-10.0); MONOCYTES % (AUTO) 8.4 % (0.0-11.0); NEUTROPHILS # (AUTO) 5.4 K/uL (1.8-8.9); PLATELET COUNT (AUTO) 287 K/uL (152-348); WHITE BLOOD COUNT (AUTO) 7.8 K/uL (3.6-10.2)
[2019-11-25 09:54] LABS: PHOSPHOROUS 6.4 mg/dL (2.5-4.9); POTASSIUM 5.4 mmol/L (3.5-5.1)
[2019-11-25 09:57] LABS: CREATININE 8.6 mg/dL (0.6-1.3)
--- NOTE | 2019-11-25 11:30 | NUR ---
DR CASEY HERE TO SEE PATIENT AND WHEN IS SPOKE WITH THE PATIENTS SHE TOLD ME THAT SHE DOES NOT WANT PSYCH DRUGS ORDERED FOR HER STATED THAT THE HER PERSONAL NEUROLOGIST DOES NOT WANT ANY NEW MEDS SO I GAVE HER DR CARRASCO NUMBER AND THEY BOTH TALKED WITH EACH ORTHER.
[2019-11-25 12:05] VITALS: BP 151/76
[2019-11-25] MEDS: INSULIN REGULAR, HUMAN 300 UNIT/3 ML VIAL SQ PRN ×3 (12:30→21:22)
--- NOTE | 2019-11-25 12:30 | NUR ---
PATIENT IS ALERT TO SELF BUT IS CONFUSED AND DISORIENTED GOT OUT OF BED WITH BED ALARM ON SEEN STANDING BY THE SIDE OF THE BED HE HAD MOVED HIS BOWEL IN BED AND ON THE FLOOR ASSISTED INTO THE BATHROOM ASKED HIM TO SIT BUT HE REFUSED TO SEAT SO ROSALIO CARE GIVEN WHILE HE WAS STANDING ENTIRE BED CHANGED HE SOLILED ALL THE BED LINEN ASSISTED BACK INTO BED MADE COMFORTABLE WILL CONTINUE TO OBSERVE.
--- NOTE | 2019-11-25 13:00 | NUR ---
CALL RECEIVED FROM DR BAGLEY STATED THAT HE WAS NOTIFIED THAT PATIENT HAS BEEN HAVING DIARRHEA FOR OVER A MONTH AND HE STATED TO SEND STOOL FOR CDIFF NOTIFIED HIM THAT PATIENT HAS A BOWEL MOVEMENT TODAY BUT THE STOOL WAS SOFT BUT FORMED AND HE STATED TO SEND STOOL FOR C DIFF WITH NEXT BOWEL MOVEMENT AND NOTED
[2019-11-25 16:00] VITALS: BP 135/60
--- NOTE | 2019-11-25 16:30 | NUR ---
PATIENT GOT OUT OF BED AGAIN AND DEFECATED ALL OVER THE FLOOR SOFT BUT FORMED SPECIMEN OBTAINED AND SENT TO THE LAB ROSALIO CARE HE REFUED TO LAY DOWN IN HIS BED WANTS TO SIT AT THE EDGE SO THE TSERING CHAIR WAS BROUGHT TO SIT HIM IN BUT HE REFUSED AND FINALLY WAS ABLE TO BE PLACED BACK INTO BED
[2019-11-25] MEDS: LORAZEPAM 1 MG TABLET PO PRN (16:35)
--- NOTE | 2019-11-25 18:01 | NUR ---
RESTING IN BED COOPERATIVE AT THE MOMENT AND EATING HIS DINNER WITH NO FUTHER EMESIS
--- NOTE | 2019-11-25 19:00 | NUR ---
PATIENT ALERT BUT FORGETFUL, NO SOB NO CHEST PAIN, TELE MONITOR SINUS RHYTHM AT THIS TIME. PATIENT HAS NO S/S OF PAIN AT THIS TIME, PATIENT HAS EPISODE OF RESISTIVE TO CARE, AND COMBATIVE, REORIENT PATIENT BUT NOT EFFECTIVE, CONT TO MONITOR.
[2019-11-25] MEDS: QUETIAPINE FUMARATE 25 MG TABLET PO SCH (21:09)
[2019-11-25 21:24] VITALS: BP 140/70
[2019-11-26 01:21] VITALS: BP 90/42
[2019-11-26] MEDS: hydrALAZINE HCL 50 MG TABLET PO SCH ×3 (05:57→21:05)
[2019-11-26] MEDS: BLOOD SUGAR DIAGNOSTIC 1 EACH STRIP VI SCH ×4 (05:58→21:04)
[2019-11-26 06:03] VITALS: BP 160/73
--- NOTE | 2019-11-26 06:07 | NUR ---
PATIENT ALERT BUT FORGETFUL, PATIENT ON TELE MONITOR SINUS RHYTHM SINUS FERNANDO. PATIENT HAS NO S/OF PAIN AT THIS TIME, NO EPISODE OF DIARRHEA NOTED. PATIENT HAS EPISODE OF RESISTIVE TO CARE, PATIENT CAN ALSO COMBATIVE TO STAFF, AND REFUSING CARE, BP MONITOR, SLIGHTLY ELEVATED BUT ASYMPTOMATIC, GIVEN APRESOLINE ORDERED, CONT TO MONITOR.
[2019-11-26 06:52] LABS: BASOPHILS # (AUTO) 0.1 K/uL (0.0-8.0); EOSINOPHILS # (AUTO) 0.1 K/uL (0.0-0.7); EOSINOPHILS % (AUTO) 1.9 % (0.0-7.0); HEMATOCRIT 35.1 % (36.7-47.1); HEMOGLOBIN 11.9 g/dL (12.5-16.3); LYMPHOCYTES # (AUTO) 2.1 K/uL (20.0-40.0); LYMPHOCYTES % (AUTO) 31.8 % (20.5-51.5); MEAN CORPUSCULAR HGB CONC 34 g/dL (32.5-36.3); MEAN CORPUSCULAR VOLUME 88.2 fL (73.0-96.2); MONOCYTES # (AUTO) 0.6 K/uL (2.0-10.0); MONOCYTES % (AUTO) 9.4 % (0.0-11.0); NEUTROPHILS # (AUTO) 3.8 K/uL (1.8-8.9); NEUTROPHILS % (AUTO) 55.9 % (38.5-71.5); PLATELET COUNT (AUTO) 299 K/uL (152-348); RED BLOOD CELL COUNT(AUTO) 3.98 MIL/uL (4.06-5.63); WHITE BLOOD COUNT (AUTO) 6.7 K/uL (3.6-10.2)
[2019-11-26 06:58] LABS: POTASSIUM 5.3 mmol/L (3.5-5.1)
[2019-11-26 07:00] LABS: CREATININE 10.5 mg/dL (0.6-1.3)
--- NOTE | 2019-11-26 08:08 | NUR ---
PATIENT SEEN AND EXAMINED BY DENNIS MORIN WITH NEW ORDERS AND NOTED PATIENT IS CURRENTLY ON DIALYSIS ORDERED AND TOLERATING WELL.
[2019-11-26] MEDS: ONDANSETRON 4 MG/2 ML VIAL IV PRN (08:33)
[2019-11-26] MEDS: LAMOTRIGINE 25 MG TABLET PO SCH ×3 (09:16→21:00)
--- NOTE | 2019-11-26 09:47 | NUR ---
DIALYSIS COMPLETED ORDERED AND 500 ML REMOVED BLOOD PRESSURE SYSTOLIC AT THIS TIME IS 111 TOLERATED PROCEDURE FAIR.
[2019-11-26] MEDS: LORAZEPAM 1 MG TABLET PO PRN (10:10)
[2019-11-26 13:43] VITALS: BP 115/63
--- NOTE | 2019-11-26 14:08 | NUR ---
PATIENT IS AWAKE ALERT SEEMS MIXED UP BUT IS COOPERATIVE AT THIS TIME ASSISTED NEEDED NO FUTHER EMESIS AT THIS TIME WILL CONTINUE TO OBSERVE.
--- NOTE | 2019-11-26 15:35 | NUR ---
PATIENT REFUSED TO HAVE HIS VITALS SIGNS CHECKED ATTEMPTS BY THE ASSIGNED CATTLE BRANDER AND THIS WRITTER BUT HE SCREAMED AND USHERED US OUT OF HIS ROOM.
--- NOTE | 2019-11-26 16:04 | NUR ---
PATIENT REFUSED TO HAVE HIS BLOOD CHECK MAKING A FIST IN ATTEMPT TO HIT THIS WRITTER ATTEMPTED MANY TIMES UNABLE TO HE CONTINUES TO REFUSE AND GET MORE AGITATED STATED GET AWAY FROM HERE
--- NOTE | 2019-11-26 17:37 | NUR ---
REFUSING TO EAT HIS DINNER JUST LAYING DOWN IN HIS BED COVERED WITH HIS SHEETS REFUSING TO SIT UP OR BE ASSISTED TO SIT UP AND EAT DINNER GETTING ANGRY.
--- NOTE | 2019-11-26 19:30 | NUR ---
RECEIVED PT ALERT, AWAKE AND ORIENTEDX3. PT IN NO ACUTE RESPIRATORY DISTRESS. IV INTACT. SAFETY AND COMFORT PROVIDED. WILL CONTINUE TO MONITOR.
[2019-11-26] MEDS: QUETIAPINE FUMARATE 25 MG TABLET PO SCH (21:00)
[2019-11-26] MEDS: INSULIN REGULAR, HUMAN 300 UNIT/3 ML VIAL SQ PRN (21:07)
[2019-11-26 21:08] VITALS: BP 125/78
[2019-11-27 04:30] VITALS: BP 138/72
[2019-11-27] MEDS: hydrALAZINE HCL 50 MG TABLET PO SCH ×3 (05:50→21:17)
--- NOTE | 2019-11-27 06:30 | NUR ---
PT SLEPT INTERMITTENTLY. PT IN NO ACUTE RESPIRATORY DISTRESS. IV INTACT. PRESCRIBED MEDICATION GIVEN AND PT TOLERATED IT WELL. SAFETY AND COMFORT PROVIDED. ALL NEEDS ARE MET.WILL ENDORSE TO INCOMING NURSE FOR CONTINUITY OF CARE.
[2019-11-27] MEDS: BLOOD SUGAR DIAGNOSTIC 1 EACH STRIP VI SCH ×4 (06:32→21:00)
[2019-11-27 07:14] LABS: BASOPHILS # (AUTO) 0.1 K/uL (0.0-8.0); BASOPHILS % (AUTO) 1.1 % (0.0-2.0); EOSINOPHILS # (AUTO) 0.2 K/uL (0.0-0.7); EOSINOPHILS % (AUTO) 2.8 % (0.0-7.0); HEMATOCRIT 37.9 % (36.7-47.1); HEMOGLOBIN 12.3 g/dL (12.5-16.3); LYMPHOCYTES # (AUTO) 1.6 K/uL (20.0-40.0); LYMPHOCYTES % (AUTO) 23.4 % (20.5-51.5); MEAN CORPUSCULAR HEMOGLOBIN 29.1 uug (23.8-33.4); MEAN CORPUSCULAR HGB CONC 33 g/dL (32.5-36.3); MEAN CORPUSCULAR VOLUME 89.4 fL (73.0-96.2); MONOCYTES # (AUTO) 0.8 K/uL (2.0-10.0); MONOCYTES % (AUTO) 11.9 % (0.0-11.0); NEUTROPHILS % (AUTO) 60.8 % (38.5-71.5); PLATELET COUNT (AUTO) 263 K/uL (152-348); RED BLOOD CELL COUNT(AUTO) 4.24 MIL/uL (4.06-5.63); WHITE BLOOD COUNT (AUTO) 6.6 K/uL (3.6-10.2)
--- NOTE | 2019-11-27 07:43 | NUR ---
RECEIVED PATIENT IN BED QUITE AT THIS TIME OPENS EYES WHEN NAME IS CALLED BUT WILL PROMPTLY CLOSE EYES DID NOT WANT TO BE BORDERED AT THIS TIME SUZETTE CATH IS INTACT RIGHT UPPER CHEST WITH NO S/S OF DRAINAGE AT THIS TIME WILL CONTINUE TO OBSERVE.
[2019-11-27 07:49] LABS: MAGNESIUM 2.1 mg/dL (1.8-2.4); PHOSPHOROUS 5.8 mg/dL (2.5-4.9); POTASSIUM 4.9 mmol/L (3.5-5.1)
[2019-11-27 07:53] LABS: CREATININE 9.3 mg/dL (0.6-1.3)
[2019-11-27] MEDS: LAMOTRIGINE 25 MG TABLET PO SCH ×3 (08:37→21:18)
[2019-11-27] MEDS ORDERED: ASPIRIN 81 MG TAB.CHEW PO SCH (09:00)
--- NOTE | 2019-11-27 09:00 | NUR ---
SEEN BY DR CASTANEDA WITH ORDER TO DISCHARGE PATIENT HOME TODAY DR CASTANEDA STATED TRIED TO CALL PATIENTS STEPHENIE BUT WAS UNABLE TO TALK TO HER HER PHONE WAS NOT RECEIVING CALLS AT THE TIME.
[2019-11-27 12:00] VITALS: BP 163/80
[2019-11-27] MEDS: INSULIN REGULAR, HUMAN 300 UNIT/3 ML VIAL SQ PRN ×2 (12:23→21:01)
--- NOTE | 2019-11-27 13:00 | NUR ---
RECEIVED A CALL FROM PATIENTS STEPHENIE GLORIA WANTING TO KNOW PROGRESS ON HER INFORMED HER THAT HER HAS BEEN DISCHARGED AND THAT DR CASTANEDA TRIED TO CALL HER THIS AM BUT HER PHONE WAS NOT RECEIVING CALLS AND SHE STATED THAT HE PHONE WAS OFF AT THE TIME AND I NOTIFIED HER THAT HER HAS BEEN DISCHARGED AND SHE STATED [facility] WILL BE ABLE TO PICK HIM UP ABOUT 8PM TODAY BUT REQUESTED FOR THE DOCTOR TO CALL HER SO I VERIFIED HER PHONE NUMBER AND SENT IT TO DR CASTANEDA TO CALL HER.WENT OVER THE DISCHARGE ORDERS INSTRUCTIONS ETC AND SHE EXPRESSED UNDERSTANDING
--- NOTE | 2019-11-27 15:36 | NUR ---
PER DR CASTANEDA HE TRIED TO CALL PATIENTS STEPHENIE AT THE PHONE NUMBER SHE PROVIDED ME THIS AFTERNOON WHEN I SPOKE WITH HER BUT SHE DID NOT ANSWER HER PHONE.
[2019-11-27 16:00] VITALS: BP 151/0
--- NOTE | 2019-11-27 18:15 | NUR ---
PATIENT IS BEING PREPPED FOR DISCHARGE AWAITING FOR HIS TO PICK HIM UP TONIGHT [place] REMOVED MADE COMFORTABLE COOPERATIVE CALM AND QUIET AT THIS TIME.
[2019-11-27 20:00] VITALS: BP 157/81
--- NOTE | 2019-11-27 20:00 | NUR ---
RECEIVED PATIENT AWAKE IN BED. A/O X2. WAITING FOR TO LIGHT RAIL TRAIN OPERATOR. PATIENT DENIES PAIN OR DISCOMFORT. NO RESP. DISTRESS NOTED. BED ALARM ON. ALL NEEDS ATTENDED. WILL CONTINUE TO MONITOR AND ASSESS.
[2019-11-27 21:17] VITALS: BP 157/81
[2019-11-27] MEDS: QUETIAPINE FUMARATE 25 MG TABLET PO SCH (21:17)
--- NOTE | 2019-11-27 21:20 | NUR ---
PATIENT DISCHARGED HOME VIA . PATIENT LEFT FACILITY IN STABLE CONDITION. ALL NEEDS ATTENDED.
[2019-12-05] MEDS ORDERED: FERR325T28 PO (09:46)
[2019-12-05] MEDS ORDERED: ASPI81TA31 PO (09:46)
[2019-12-05] MEDS ORDERED: METO-356 PO (09:46)
[2019-12-05] MEDS ORDERED: ATOR40TA PO (09:46)
[2019-12-05] MEDS ORDERED: PANT40TA2 PO (10:00)
[2019-12-05] MEDS ORDERED: QUET25TA PO (11:04)
[2019-12-05] MEDS ORDERED: LACT10SO PO (11:04)
== END 2019-11-27 21:20 | disposition home or self-care (01) | DRG 438 ==
LOC: ER 07:08 → TELE3 10:02 → MEDSURG3 11-26 12:37
PROVIDERS: ADMIT Nurse Practitioner Acute Care; ATTEND Nurse Practitioner Acute Care
PROC: 5A1D70Z Performance of Urinary Filtration, Intermittent, Less than 6 Hours Per Day (ICD-10-PCS; principal; 2019-11-24)
DX: K85.90 Acute pancreatitis without necrosis or infection, unspecified (principal); N18.6 End stage renal disease; G93.41 Metabolic encephalopathy; I13.2 Hypertensive heart and chronic kidney disease with heart failure and with stage 5 chronic kidney disease, or end stage renal disease; I69.354 Hemiplegia and hemiparesis following cerebral infarction affecting left non-dominant side; Z68.1 Body mass index [BMI] 19.9 or less, adult; F05 Delirium due to known physiological condition; Z99.2 Dependence on renal dialysis; E78.5 Hyperlipidemia, unspecified; E83.39 Other disorders of phosphorus metabolism; E87.5 Hyperkalemia; G40.909 Epilepsy, unspecified, not intractable, without status epilepticus; I25.10 Atherosclerotic heart disease of native coronary artery without angina pectoris; K21.0 Gastro-esophageal reflux disease with esophagitis; Z79.4 Long term (current) use of insulin; Z79.82 Long term (current) use of aspirin; Z79.01 Long term (current) use of anticoagulants; K80.20 Calculus of gallbladder without cholecystitis without obstruction; I50.9 Heart failure, unspecified; E11.22 Type 2 diabetes mellitus with diabetic chronic kidney disease; E11.40 Type 2 diabetes mellitus with diabetic neuropathy, unspecified; F01.50 Vascular dementia, unspecified severity, without behavioral disturbance, psychotic disturbance, mood disturbance, and anxiety; N40.0 Benign prostatic hyperplasia without lower urinary tract symptoms; N25.0 Renal osteodystrophy; R19.7 Diarrhea, unspecified
CPT/HCPCS: 36415; 70030-TC; 70450; 71045; 76700; 83690; 83735; 84100; 85025; 85730; 86706; 87340; 90937; 93005; A4663; G0378; J1815; J2405; J3490; J7040

== ENCOUNTER 2019-12-01 02:14 | Inpatient (IN) | payer MEDICARE, OTHER ==
[~2019-12-01] VITALS: Ht 170.2 cm; Wt 61.7 kg
[~2019-12-01 02:14] MED LIST changes: -ACET-2154 PO; -AMLO5TAB9 PO; -APIX2.5T PO; -ASPI-612 PO; -ATOR40TA PO; -Blood Sugar Diagnostic VI; -CEFT1FRO2 IV; -HYDR-4075 IV; +HYDR-4077 PO; -INSU100I19 SQ; +INSU100V10 SQ; +LAMO25TA10 PO; -LEVE500T20 PO; +LORA-259 PO; -OMEP40CA13 PO; -PANT40TA2 PO; -POTA10CA43 PO
--- NOTE | 2019-12-01 02:55 | NUR ---
Dr. Castillo at bedside for MSE.
[2019-12-01 03:01] LABS: BASOPHILS # (AUTO) 0.1 K/uL (0.0-8.0); BASOPHILS % (AUTO) 0.6 % (0.0-2.0); HEMATOCRIT 44.7 % (36.7-47.1); HEMOGLOBIN 15.2 g/dL (12.5-16.3); LYMPHOCYTES # (AUTO) 1.1 K/uL (20.0-40.0); LYMPHOCYTES % (AUTO) 8.7 % (20.5-51.5); MEAN CORPUSCULAR HEMOGLOBIN 29.7 uug (23.8-33.4); MEAN CORPUSCULAR HGB CONC 34 g/dL (32.5-36.3); MEAN CORPUSCULAR VOLUME 87.5 fL (73.0-96.2); MONOCYTES % (AUTO) 7.8 % (0.0-11.0); NEUTROPHILS # (AUTO) 10.8 K/uL (1.8-8.9); NEUTROPHILS % (AUTO) 82.9 % (38.5-71.5); PLATELET COUNT (AUTO) 346 K/uL (152-348); RED BLOOD CELL COUNT(AUTO) 5.11 MIL/uL (4.06-5.63)
[2019-12-01 03:12] LABS: POTASSIUM 4.5 mmol/L (3.5-5.1)
[2019-12-01] MEDS ORDERED: PANTOPRAZOLE SODIUM 40 MG VIAL IV ONE (03:15)
[2019-12-01] MEDS ORDERED: ONDANSETRON 4 MG/2 ML VIAL IV ONE (03:15)
[2019-12-01] MEDS ORDERED: METOCLOPRAMIDE HCL 10 MG/2 ML VIAL IV ONE (03:15)
[2019-12-01 03:17] LABS: CREATININE 10.5 mg/dL (0.6-1.3)
[2019-12-01 03:18] LABS: BILIRUBIN,DIRECT 0.1 mg/dL (0.0-0.2); BILIRUBIN,TOTAL 0.4 mg/dL (0.2-1.0); TOTAL PROTEIN, SERUM 9.3 g/dL (6.4-8.2)
--- NOTE | 2019-12-01 04:05 | NUR ---
Called [facility] to page Dr. Elena.
--- NOTE | 2019-12-01 04:30 | NUR ---
Called [facility] to repage Dr. Elena.
--- NOTE | 2019-12-01 04:47 | NUR ---
Dr. Castillo on panel call with Dr. Elena. Patient accepted for admission to [facility], diagnosis: GI Bleed.
--- NOTE | 2019-12-01 04:54 | NUR ---
Report given to Lane NEGRON Tele.
[2019-12-01 06:00] VITALS: BP 129/86
--- NOTE | 2019-12-01 06:25 | NUR ---
Pt arrived in the unit at 0600 via gurney from the ER accompanied by Cruzito NEGRON. Admitted in tele for GI bleed. Vitals stable. No acute distress noted. Pt noted to have limited speech. IV on left forearm #20, patent and intact. Right chest shunt in place. Belonging's list check done. Had x1 BM. Pt cleaned and made comfortable. Safety measures maintained. Call light within reach. Will continue to monitor.
[2019-12-01] MEDS ORDERED: ONDANSETRON 4 MG/2 ML VIAL IV PRN (06:30)
[2019-12-01] MEDS ORDERED: MAGNESIUM HYDROXIDE 30 ML LIQUID UDC PO PRN ×2 (06:30→08:30)
[2019-12-01] MEDS ORDERED: HYDROCODONE/APAP 5-325MG TABLET PO PRN (06:30)
[2019-12-01] MEDS ORDERED: ACETAMINOPHEN 325 MG TABLET PO PRN (06:30)
[2019-12-01] MEDS ORDERED: Z GUARD REMEDY PASTE 57 GM TUBE TOP PRN (06:30)
[2019-12-01] MEDS ORDERED: DEXTROSE 50% 50 ML DISP.SYRIN IV PRN (06:30)
[2019-12-01] MEDS: BLOOD SUGAR DIAGNOSTIC 1 EACH STRIP VI SCH ×4 (06:41→20:35)
--- NOTE | 2019-12-01 08:00 | NUR ---
received pt. resting in bed alert oriented to self. pt. denies pain/ discomfort. pt. denies sob/ difficulty breathing. pt. appears in no distress. IV in L forearm 20 gauge intact patent saline lock and wrapped in kerlix. pt. sates he does not feel nauseous or needs to vomit. safety measures in place. seizure precautions in place. call light within reach. will continue to monitor pt.
[2019-12-01 08:37] VITALS: BP 139/64
[2019-12-01] MEDS: LAMOTRIGINE 25 MG TABLET PO SCH ×2 (09:00→17:00)
[2019-12-01 09:02] LABS: BASOPHILS # (AUTO) 0.1 K/uL (0.0-8.0); BASOPHILS % (AUTO) 0.7 % (0.0-2.0); HEMATOCRIT 42.1 % (36.7-47.1); HEMOGLOBIN 13.9 g/dL (12.5-16.3); MEAN CORPUSCULAR HEMOGLOBIN 29.4 uug (23.8-33.4); MEAN CORPUSCULAR HGB CONC 33 g/dL (32.5-36.3); MEAN CORPUSCULAR VOLUME 88.8 fL (73.0-96.2); MONOCYTES # (AUTO) 1.5 K/uL (2.0-10.0); NEUTROPHILS % (AUTO) 82.3 % (38.5-71.5); PLATELET COUNT (AUTO) 315 K/uL (152-348); RED BLOOD CELL COUNT(AUTO) 4.74 MIL/uL (4.06-5.63); WHITE BLOOD COUNT (AUTO) 14.5 K/uL (3.6-10.2)
[2019-12-01] MEDS: PANTOPRAZOLE SODIUM 40 MG VIAL IV SCH ×2 (09:09→17:00)
--- NOTE | 2019-12-01 09:29 | NUR ---
Pt. is on NPO diagnosis for GI bleed. Asked ORACLE FUSION MIDDLEWARE DEVELOPER Christina if she wants pt. to have lamictal 50 mg PO for seizures as ordered. she stated not to give pt. lamictal for NPO diagnosis. of pt. called and stated pt. had a seizure yesterday and has not had a seizure in a year due to vomiting. CARLO Vasquez aware.
[2019-12-01] MEDS: METOPROLOL SUCCINATE XL 25 MG TAB.SR.24H PO SCH (11:30)
--- NOTE | 2019-12-01 15:46 | NUR ---
Patient seen sitting on the floor. Patient is confuse and non verbal during interview. no visible injury noted. no change in LOC. no change in ROM. LACROSSE PLAYER Christina notified. aware. Patient denies pain/discomfort. will continue monitor for safety.
[2019-12-01 15:58] VITALS: BP 105/52
[2019-12-01 16:12] LABS: *OCCULT BLOOD STOOL NEGATIVE (NEGATIVE)
--- NOTE | 2019-12-01 20:04 | NUR ---
HD catheter site was cleansed and new dressing applied.
[2019-12-01] MEDS: ATORVASTATIN 40 MG TABLET PO SCH (20:22)
[2019-12-01] MEDS: INSULIN REGULAR, HUMAN 300 UNITS/3 ML VIAL SQ PRN (20:41)
[2019-12-02 00:41] VITALS: BP 117/67
[2019-12-02 05:46] VITALS: BP 103/64
--- NOTE | 2019-12-02 05:52 | NUR ---
patients is calling, upset that no doctor has talked to her and the patient is not getting his Seroquel, demands to pick him up immediately.
--- NOTE | 2019-12-02 05:53 | NUR ---
Becky Elena. is in the lobby waiting for the patient
[2019-12-02] MEDS: BLOOD SUGAR DIAGNOSTIC 1 EACH STRIP VI SCH ×4 (06:54→20:33)
[2019-12-02 08:00] VITALS: BP 133/65
[2019-12-02] MEDS: INSULIN REGULAR, HUMAN 300 UNIT/3 ML VIAL SQ PRN (08:23)
[2019-12-02] MEDS: LAMOTRIGINE 25 MG TABLET PO SCH ×2 (09:31→17:13)
[2019-12-02] MEDS: PANTOPRAZOLE SODIUM 40 MG VIAL IV SCH ×2 (09:32→17:12)
[2019-12-02] MEDS: METOPROLOL SUCCINATE XL 25 MG TAB.SR.24H PO SCH (09:34)
[2019-12-02 09:35] LABS: BASOPHILS # (AUTO) 0.1 K/uL (0.0-8.0); BASOPHILS % (AUTO) 0.4 % (0.0-2.0); EOSINOPHILS % (AUTO) 0.1 % (0.0-7.0); HEMATOCRIT 40.8 % (36.7-47.1); HEMOGLOBIN 13.4 g/dL (12.5-16.3); LYMPHOCYTES # (AUTO) 1.7 K/uL (20.0-40.0); LYMPHOCYTES % (AUTO) 12.1 % (20.5-51.5); MEAN CORPUSCULAR HEMOGLOBIN 29.2 uug (23.8-33.4); MEAN CORPUSCULAR HGB CONC 33 g/dL (32.5-36.3); MEAN CORPUSCULAR VOLUME 89.2 fL (73.0-96.2); MONOCYTES # (AUTO) 1.2 K/uL (2.0-10.0); MONOCYTES % (AUTO) 8.2 % (0.0-11.0); NEUTROPHILS # (AUTO) 11.4 K/uL (1.8-8.9); NEUTROPHILS % (AUTO) 79.2 % (38.5-71.5); PLATELET COUNT (AUTO) 307 K/uL (152-348); RED BLOOD CELL COUNT(AUTO) 4.57 MIL/uL (4.06-5.63); WHITE BLOOD COUNT (AUTO) 14.4 K/uL (3.6-10.2)
[2019-12-02 10:05] LABS: MAGNESIUM 2.3 mg/dL (1.8-2.4); PHOSPHOROUS 7.6 mg/dL (2.5-4.9); POTASSIUM 4.6 mmol/L (3.5-5.1)
[2019-12-02 10:13] LABS: CREATININE 13.9 mg/dL (0.6-1.3)
[2019-12-02 10:35] LABS: THYROID STIMULATING HORMONE 1.321 mIU/mL (0.358-3.740)
--- NOTE | 2019-12-02 11:00 | NUR ---
Pt on Dialysis
--- NOTE | 2019-12-02 18:06 | NUR ---
Pt remained stable throughout shift. Very confused and reinforcement needed, has periods of agitation. Kept removing Telemetry box and refuses vital signs taken. Pt had dialysis today, tolerated well. Pt did take medications. Bed locked in lowest position with siderails 3x up. Bed alarm on. seizure and fall precaution followed throughout shift.
--- NOTE | 2019-12-02 19:20 | NUR ---
Received patient lying in bed. AAOX1 only. Mainly confused. No signs or symptoms of pain or SOB. No seizure episode noted at this time. Seizure precaution observed. VS WNL. SR with occasional PVC at 61/min. Right upper chest dialysis site intact. Left FA IV site intact and patent. Safety measure initiated and call flaherty within reached.
[2019-12-02 20:30] VITALS: BP 135/57
[2019-12-02] MEDS: QUETIAPINE FUMARATE 25 MG TABLET PO SCH (20:30)
[2019-12-02] MEDS: ATORVASTATIN 40 MG TABLET PO SCH (20:30)
[2019-12-02] MEDS: INSULIN REGULAR, HUMAN 300 UNITS/3 ML VIAL SQ PRN (20:35)
--- NOTE | 2019-12-02 20:42 | NUR ---
Dr Hayes called and updated on patient current condition. Per Dr. Hayes she will order MRI and lab test. Per Dr. Hayes patient with possible multiple myeloma
[2019-12-02] MEDS: FERROUS SULFATE 325 MG TABEC PO SCH (21:11)
[2019-12-03 00:19] VITALS: BP 115/61
[2019-12-03 04:26] VITALS: BP 148/73
--- NOTE | 2019-12-03 06:12 | NUR ---
AAOX1 only. Mainly confused. No signs or symptoms of pain or SOB. No seizure episode noted. Seizure precaution maintained. No unsafe behavior. SR with occasional PVC at 69/min. Right upper chest dialysis site intact. Left FA IV site intact and patent. Safety measure maintained and call flaherty within reached.
[2019-12-03] MEDS: BLOOD SUGAR DIAGNOSTIC 1 EACH STRIP VI SCH ×4 (06:39→20:28)
--- NOTE | 2019-12-03 06:41 | NUR ---
TEXTED DR. BURR FOR MRI APPROVAL.
[2019-12-03 07:14] LABS: BASOPHILS # (AUTO) 0.1 K/uL (0.0-8.0); BASOPHILS % (AUTO) 0.9 % (0.0-2.0); EOSINOPHILS # (AUTO) 0.1 K/uL (0.0-0.7); EOSINOPHILS % (AUTO) 1.2 % (0.0-7.0); HEMOGLOBIN 13.8 g/dL (12.5-16.3); LYMPHOCYTES # (AUTO) 2.2 K/uL (20.0-40.0); LYMPHOCYTES % (AUTO) 20.1 % (20.5-51.5); MEAN CORPUSCULAR HEMOGLOBIN 29.4 uug (23.8-33.4); MEAN CORPUSCULAR HGB CONC 33 g/dL (32.5-36.3); MEAN CORPUSCULAR VOLUME 89.7 fL (73.0-96.2); MONOCYTES % (AUTO) 8.8 % (0.0-11.0); NEUTROPHILS # (AUTO) 7.6 K/uL (1.8-8.9); PLATELET COUNT (AUTO) 304 K/uL (152-348); RED BLOOD CELL COUNT(AUTO) 4.68 MIL/uL (4.06-5.63); WHITE BLOOD COUNT (AUTO) 11.1 K/uL (3.6-10.2)
--- NOTE | 2019-12-03 07:15 | NUR ---
Received patient resting in bed, awake and alert. Patient denies pain and discomfort. No s/s of acute distress. Bed in lowest position, side rails up x2, call light within reach. Will continue to monitor.
[2019-12-03 07:37] LABS: MAGNESIUM 2.2 mg/dL (1.8-2.4); PHOSPHOROUS 5.9 mg/dL (2.5-4.9)
[2019-12-03 07:38] LABS: CREATININE 10.7 mg/dL (0.6-1.3)
[2019-12-03] MEDS: FERROUS SULFATE 325 MG TABEC PO SCH ×2 (08:09→20:28)
[2019-12-03] MEDS: METOPROLOL SUCCINATE XL 25 MG TAB.SR.24H PO SCH (08:09)
[2019-12-03] MEDS: LAMOTRIGINE 25 MG TABLET PO SCH ×2 (08:09→17:07)
[2019-12-03] MEDS: PANTOPRAZOLE SODIUM 40 MG VIAL IV SCH (08:10)
[2019-12-03] MEDS: INSULIN REGULAR, HUMAN 300 UNIT/3 ML VIAL SQ PRN ×2 (11:42→17:10)
[2019-12-03 11:51] VITALS: BP 122/54
--- NOTE | 2019-12-03 15:30 | NUR ---
Receieved patient. Watching TV without complaints.
[2019-12-03 16:00] VITALS: BP 159/70
[2019-12-03] MEDS: PANTOPRAZOLE SODIUM 40 MG TABLET.DR PO SCH (17:07)
--- NOTE | 2019-12-03 17:30 | NUR ---
Refusing dinner. Denies pain or discomfort.
--- NOTE | 2019-12-03 19:20 | NUR ---
Received patient lying in bed. AAOX1 only. No signs or symptoms of pain or SOB. No seizure episode at this time. Seizure precaution observed. VS WNL. Sinus jocelyn on tele at 54/min. Right upper chest dialysis site intact. Left FA IV site intact and patent. Safety measure initiated and call flaherty within reached.
[2019-12-03] MEDS: ATORVASTATIN 40 MG TABLET PO SCH (20:25)
[2019-12-03] MEDS: QUETIAPINE FUMARATE 25 MG TABLET PO SCH (20:25)
[2019-12-04 00:36] VITALS: BP 100/61
[2019-12-04 05:29] VITALS: BP_SYST 144; BP_SYST 77; BP_DIAS 40; BP_DIAS 77
[2019-12-04] MEDS: PANTOPRAZOLE SODIUM 40 MG TABLET.DR PO SCH ×2 (06:02→16:22)
--- NOTE | 2019-12-04 06:07 | NUR ---
AAOX1 only. No signs or symptoms of pain or SOB. No seizure episode. Seizure precaution maintained. NSR on tele at 77/min. Right upper chest dialysis site intact. Left FA IV site intact and patent. NPO status. For MRI this morning. Safety measure maintained and call flaherty within reached.
[2019-12-04 06:08] LABS: BASOPHILS # (AUTO) 0.1 K/uL (0.0-8.0); BASOPHILS % (AUTO) 0.7 % (0.0-2.0); EOSINOPHILS # (AUTO) 0.2 K/uL (0.0-0.7); EOSINOPHILS % (AUTO) 2.2 % (0.0-7.0); LYMPHOCYTES # (AUTO) 2.5 K/uL (20.0-40.0); LYMPHOCYTES % (AUTO) 24.7 % (20.5-51.5); MEAN CORPUSCULAR HEMOGLOBIN 29.7 uug (23.8-33.4); MEAN CORPUSCULAR HGB CONC 33 g/dL (32.5-36.3); MONOCYTES # (AUTO) 0.9 K/uL (2.0-10.0); MONOCYTES % (AUTO) 8.9 % (0.0-11.0); NEUTROPHILS # (AUTO) 6.4 K/uL (1.8-8.9); NEUTROPHILS % (AUTO) 63.5 % (38.5-71.5); PLATELET COUNT (AUTO) 304 K/uL (152-348); RED BLOOD CELL COUNT(AUTO) 4.38 MIL/uL (4.06-5.63)
[2019-12-04 06:18] LABS: MAGNESIUM 2.2 mg/dL (1.8-2.4); PHOSPHOROUS 5.9 mg/dL (2.5-4.9)
[2019-12-04 06:21] LABS: CREATININE 12.9 mg/dL (0.6-1.3)
[2019-12-04] MEDS: BLOOD SUGAR DIAGNOSTIC 1 EACH STRIP VI SCH ×4 (06:36→20:28)
--- NOTE | 2019-12-04 07:30 | NUR ---
Received pt. in bed AAOX1. Vitals stable no c/of pain HL to Left hand area, patent.
[2019-12-04 08:00] VITALS: BP 167/85
[2019-12-04 08:06] LABS: AFP, TUMOR MARKER 2.8 ng/mL (0.0-8.3)
[2019-12-04] MEDS: FERROUS SULFATE 325 MG TABEC PO SCH ×2 (08:52→21:05)
[2019-12-04] MEDS: METOPROLOL SUCCINATE XL 25 MG TAB.SR.24H PO SCH (08:53)
[2019-12-04] MEDS: LAMOTRIGINE 25 MG TABLET PO SCH ×2 (08:53→16:22)
--- NOTE | 2019-12-04 08:58 | NUR ---
Ambulance services, in the unit to take patient to schedule MRI. At this time patient become restless and agitated. Will follow up.
--- NOTE | 2019-12-04 09:03 | NUR ---
Patient safely placed on gurney by transfer personnel and taken to MRI.
--- NOTE | 2019-12-04 10:37 | NUR ---
Patient back from [facility] mri done as reported. patient aaox1. no c/of Pain.
[2019-12-04 11:00] VITALS: BP 148/78
[2019-12-04] MEDS: ASPIRIN 81 MG TAB.CHEW PO SCH (11:36)
--- NOTE | 2019-12-04 12:30 | NUR ---
HD R.N. in to dialyse patient.
[2019-12-04 14:06] LABS: HEPATITIS B SURFACE AB Reactive (.); HEPATITIS Be ANTIGEN Negative (Negative)
--- NOTE | 2019-12-04 15:41 | NUR ---
HD completed at this time, patient tolerated procedure well, vitals of 115/55, with Hr of 59 sustained below 60's patient AAOx1. cooperative, a total of 1Liter removed as reported.
[2019-12-04 16:00] VITALS: BP 102/61
[2019-12-04] MEDS: INSULIN REGULAR, HUMAN 300 UNIT/3 ML VIAL SQ PRN (16:28)
[2019-12-04 20:24] VITALS: BP 121/66
[2019-12-04] MEDS: QUETIAPINE FUMARATE 25 MG TABLET PO SCH (21:05)
[2019-12-04] MEDS: ATORVASTATIN 40 MG TABLET PO SCH (21:05)
[2019-12-04] MEDS: INSULIN REGULAR, HUMAN 300 UNITS/3 ML VIAL SQ PRN (21:11)
--- NOTE | 2019-12-04 21:24 | NUR ---
awake alert and oriented x1 with periods of confusion. VSS. Was dialyzed earlier where 1 Liter out. Needs attended. Compliant with meds. accucheck 174 @ 2100 with coverage given. Fall precautions maintained. Siderails up for safety. Patient anuric. Kept comfortable. Denies any pain nor any discomfort.
[2019-12-05 05:28] VITALS: BP 126/69
[2019-12-05 05:58] LABS: BASOPHILS # (AUTO) 0.1 K/uL (0.0-8.0); BASOPHILS % (AUTO) 0.8 % (0.0-2.0); EOSINOPHILS # (AUTO) 0.2 K/uL (0.0-0.7); EOSINOPHILS % (AUTO) 2.7 % (0.0-7.0); HEMATOCRIT 36.5 % (36.7-47.1); HEMOGLOBIN 12.2 g/dL (12.5-16.3); LYMPHOCYTES # (AUTO) 2.1 K/uL (20.0-40.0); LYMPHOCYTES % (AUTO) 25.8 % (20.5-51.5); MEAN CORPUSCULAR HEMOGLOBIN 29.9 uug (23.8-33.4); MEAN CORPUSCULAR HGB CONC 34 g/dL (32.5-36.3); MEAN CORPUSCULAR VOLUME 89.3 fL (73.0-96.2); MONOCYTES # (AUTO) 0.7 K/uL (2.0-10.0); MONOCYTES % (AUTO) 8.9 % (0.0-11.0); NEUTROPHILS # (AUTO) 5.1 K/uL (1.8-8.9); NEUTROPHILS % (AUTO) 61.8 % (38.5-71.5); PLATELET COUNT (AUTO) 279 K/uL (152-348); RED BLOOD CELL COUNT(AUTO) 4.09 MIL/uL (4.06-5.63); WHITE BLOOD COUNT (AUTO) 8.2 K/uL (3.6-10.2)
[2019-12-05 06:04] LABS: MAGNESIUM 2.1 mg/dL (1.8-2.4); PHOSPHOROUS 5.8 mg/dL (2.5-4.9); POTASSIUM 4.9 mmol/L (3.5-5.1)
[2019-12-05 06:06] LABS: CREATININE 9.7 mg/dL (0.6-1.3)
[2019-12-05] MEDS: PANTOPRAZOLE SODIUM 40 MG TABLET.DR PO SCH (06:19)
[2019-12-05] MEDS: BLOOD SUGAR DIAGNOSTIC 1 EACH STRIP VI SCH ×2 (06:31→11:30)
--- NOTE | 2019-12-05 08:00 | NUR ---
Received pt in bed awake but confused. AO x1, stated he's feeling okay. On RA with no SOB or distress noted. Permacath on right chest in place for dialysis, IV on left FA 20g, flushed and patent. Bed locked in lowest position with siderails 2x up. Call light within reach, bed alarm on.
[2019-12-05] MEDS ORDERED: ASPI81TA31 PO (09:46)
[2019-12-05] MEDS ORDERED: METO-356 PO (09:46)
[2019-12-05] MEDS ORDERED: FERR325T28 PO (09:46)
[2019-12-05] MEDS ORDERED: ATOR40TA PO (09:46)
[2019-12-05] MEDS ORDERED: PANT40TA2 PO (10:00)
[2019-12-05] MEDS: FERROUS SULFATE 325 MG TABEC PO SCH (10:18)
[2019-12-05] MEDS: ASPIRIN 81 MG TAB.CHEW PO SCH (10:18)
[2019-12-05] MEDS: LAMOTRIGINE 25 MG TABLET PO SCH (10:18)
[2019-12-05] MEDS: METOPROLOL SUCCINATE XL 25 MG TAB.SR.24H PO SCH (10:20)
[2019-12-05] MEDS ORDERED: QUET25TA PO (11:04)
[2019-12-05] MEDS ORDERED: LACT10SO PO (11:04)
[2019-12-05 12:00] VITALS: BP 141/58
--- NOTE | 2019-12-05 12:21 | NUR ---
Pt getting angry and refused accucheck. Explained to patient the importance but still refused. Informed Bennett BARRETT
--- NOTE | 2019-12-05 13:39 | NUR ---
pt has episodes of anger and getting combative. refused Accucheck for 11:30. Pt refused to follow instructions, walking in hallway while waiting for discharge.
--- NOTE | 2019-12-05 14:25 | NUR ---
Pt left unit via wheelchair accompanied by BONNIE MCLAUGHLIN. Pt picked up by taxi. DC forms and belonging list cosigned with another nurse d/t pt's altered mental status. DC forms and instructions given to driver/refuse collector to give to Brittany. Informed that pt leaving hospital.
[2019-12-06 07:07] LABS: A/G RATIO 0.9 (0.7-1.7); ALBUMIN 3.6 g/dL (2.9-4.4); ALPHA-1-GLOBULIN 0.3 g/dL (0.0-0.4); ALPHA-2-GLOBULIN 0.9 g/dL (0.4-1.0); BETA GLOBULIN 1.2 g/dL (0.7-1.3); GAMMA GLOBULIN 1.5 g/dL (0.4-1.8); GLOBULIN, TOTAL 3.9 g/dL (2.2-3.9); M-SPIKE Not Observed g/dL (Not Observed)
[2019-12-06 11:10] LABS: CARBOHYDRATE ANTIGEN, 19-9 1 U/mL (0-35)
== END 2019-12-05 14:25 | disposition home or self-care (01) | DRG 368 ==
LOC: ER 02:17 → TELE3 05:47 → MEDSURG3 12-04 11:45
PROVIDERS: ADMIT Registered Nurse; ATTEND Nurse Practitioner Acute Care
PROC: 5A1D70Z Performance of Urinary Filtration, Intermittent, Less than 6 Hours Per Day (ICD-10-PCS; principal; 2019-12-02)
DX: K22.6 Gastro-esophageal laceration-hemorrhage syndrome (principal); N18.6 End stage renal disease; G93.41 Metabolic encephalopathy; I13.2 Hypertensive heart and chronic kidney disease with heart failure and with stage 5 chronic kidney disease, or end stage renal disease; I50.32 Chronic diastolic (congestive) heart failure; I69.354 Hemiplegia and hemiparesis following cerebral infarction affecting left non-dominant side; R94.31 Abnormal electrocardiogram [ECG] [EKG]; E11.22 Type 2 diabetes mellitus with diabetic chronic kidney disease; G40.909 Epilepsy, unspecified, not intractable, without status epilepticus; Z98.61 Coronary angioplasty status; I25.10 Atherosclerotic heart disease of native coronary artery without angina pectoris; K21.0 Gastro-esophageal reflux disease with esophagitis; Z99.2 Dependence on renal dialysis; D72.829 Elevated white blood cell count, unspecified; Z79.4 Long term (current) use of insulin; F01.50 Vascular dementia, unspecified severity, without behavioral disturbance, psychotic disturbance, mood disturbance, and anxiety; E11.40 Type 2 diabetes mellitus with diabetic neuropathy, unspecified; N40.0 Benign prostatic hyperplasia without lower urinary tract symptoms; Z68.21 Body mass index [BMI] 21.0-21.9, adult; N25.0 Renal osteodystrophy; D18.09 Hemangioma of other sites; D47.2 Monoclonal gammopathy; E61.1 Iron deficiency; Z86.19 Personal history of other infectious and parasitic diseases
CPT/HCPCS: 36415; 74181; 82105; 82378; 83690; 83735; 84100; 84155; 84165; 84443; 85018; 85025; 86301; 86706; 86803; 87350; 90937; 93005; A4663; C9113; G0378; J1815; J2405; J2765; J7040